=== PATIENT | male | born 1955 | race Caucasian/White ===

== ENCOUNTER 2016-07-05 22:17 | Emergency (ER) | payer OTHER ==
--- NOTE | ~2016-07-05 | EKG ---
PATIENT: IGOR MÁRQUEZ UNIT #: [id number] Ventricular Rate: 78 BPM Atrial Rate: 78 BPM P-R Interval: 158 ms QRS Duration: 82 ms Q-T Interval: 370 ms QTC Calculation(Bezet): 421 ms P Han[place]: 59 degrees Calculated R [place]: 47 degrees Calculated T Han[place]: 63 degrees Diagnosis Line: Normal sinus rhythm Diagnosis Line: Normal ECG Diagnosis Line: When compared with ECG of 08-FEB-2015 14:58, Diagnosis Line: No significant change was found Diagnosis Line: Confirmed by GARY SWAIN MD ([id number]) on 07/06/2016 Diagnosis Line: 6:34:04 PM INTERPRETING MD: WILIAM RICHARDSON
--- NOTE | ~2016-07-05 | CT4 ---
[facility] A Service of [facility] RADIOLOGY TEXT RESULTS PATIENT: IGOR MÁRQUEZ LOCATION: [facility] : 59 UNIT #: [id number] AGE: [address]: Mingo Downey MD SEX: M ORDER DR: [id number] [facility] [address] [place], [place] [address] [id number] MR#: [id number] Acc #: [id number] NAME: IGOR MÁRQUEZ. : 1955 SEX: M STUDY DATE/TIME: 07/06/2016 3:31 UNIT: [facility] ROOM: STUDY DESCRIPTION: CT Abd and Pelv Wo Cont Attending Physician: Mingo Downey M.D. Ordering Physician: Zach Lakhani M.D. Primary Care Physician: Wilton Guzman M.D. MEDICAL IMAGING REPORT This report is preliminary unless electronic signature is present EXAM CT abdomen and pelvis, noncontrast, 07/06/2016. HISTORY 61-year-old male in the ED complaining of 2-day history of abdomen pain, weakness, shortness of air, lower extremity swelling. History of hepatitis and jaundice. TECHNIQUE CT examination of the abdomen and pelvis was performed without IV contrast. GI contrast material was administered. This CT exam was performed with one or more of the following radiation dose reduction techniques: automatic control, adjustment of mA and/or kV according to patient size, and iterative reconstruction. COMPARISON CT abdomen/pelvis, 02/08/2015. FINDINGS ABDOMEN FINDINGS: Lung base images show extensive pulmonary emphysema and multifocal pulmonary scarring. Mild bronchovascular infiltrate is present in the right lower lobe. No airspace consolidation or pleural effusion. Gastrostomy tube has been removed since the previous study. Cholecystectomy. Liver, pancreas and spleen are within normal limits. Extensive postop changes in the anterior abdominal wall with a shallow, fairly broad-based midline upper abdominal wall hernia containing unobstructed bowel and abdominal fat. Several tiny nonobstructing left renal calculi. Kidneys, ureters and bladder are otherwise negative. No evidence of urinary obstruction. PELVIS FINDINGS: Mild prostate enlargement. Bladder and rectum are [facility] A Service of [facility] RADIOLOGY TEXT RESULTS PATIENT: IGOR MÁRQUEZ LOCATION: [facility] : 59 UNIT #: [id number] AGE: [address]: Mingo Downey MD SEX: M ORDER DR: unremarkable. No inguinal hernia. IMPRESSION 1. No definite acute abnormalities seen within the abdomen or pelvis. 2. Severe pulmonary emphysema with bronchovascular infiltrate in the right lower lobe. No airspace consolidation or pleural effusion. 3. Cholecystectomy. 4. Extensive postop changes in the anterior abdominal wall with a shallow, broad-based ventral hernia in the upper midline abdomen containing unobstructed bowel and abdominal fat. 5. Several tiny nonobstructing left renal calculi. 6. Prostate enlargement. Dictated by... Oli Moscoso M.D. THIS IS AN ELECTRONICALLY VERIFIED REPORT Oli Moscoso M.D. at 07/06/2016 5:58 AM RENETTA/vel TD: 07/06/2016 04:13 JOB #: [id number] MEDICAL IMAGING REPORT Page 1 of 1 COPY
[~2016-07-05 22:17] MED LIST: ADRENOID CAPSU1 EACH PO; ALBUTEROL17 GM INH; ALPRAZOLAM PO; AMBIEN PO; AMBIEN10 MG PO; APIDRA (NF100 UNITS/ SUBQ; B/P PILL; BLOOD PRESSURE; CARAFATE PO; COLACE PO; COMBIVENT U/D3 M1 INH; CUBICIN INJ; CUBICIN IV; CYANOCOBALAM1000 MCG PO; DILAUDID PO; DILAUDID8 MG PO; DOC-Q-LACE100 MG PO; DOXYCYCLINE150 MG PO; DURAGESIC100 MCG EXT; FERROUS GLUCON324 MG PO; FOLIC ACID1 MG PO; GUAIFENESIN600 M1 PO; HUMALOG100 U/ML; HUMALOG100 U/ML SUBQ; JEVITY1000 M1 FT; KCL PO; LANTUS100 U/M1 SUBQ; LEVAQUIN P500 MG/100 IV; LEVAQUIN750 M1 PO; LISINOPRIL10 MG PO; LOMOTIL WHITE2.5 MG PO; LORTAB 5/500 TA1 TA1 PO; MILK OF MAGNESIA PO; MIRALAX17 GM PO; MONDOXYNE NL100 MG PO; NEURONTIN PO; NEURONTIN800 MG DOB; NEURONTIN800 MG PO; NO MEDICATIONS; NORVASC10 MG PO; OMEPRAZOLE40 MG PO; OXYCONTIN PO; OXYCONTIN20 MG PO; PERCOCET 10/3251 TAB PO; PERCOCET 5/321 UDTAB PO; PERCOCET 7.5-31 EACH PO; PERCOCET 7.5/321 TAB PO; PERCOCET PO; PERCOCET10 PO; PHENERGAN PO; PHENERGAN25 M1 PO; PROAIR HFA8.5 GM PO; PROCTOFOAM-HC 110 GM MC; PROMETHAZINE V118 M1; PROMETHAZINE V118 M1 PO; PROTONIX PO; REGLAN PO; RIFADIN150 MG PO; SENNA PO; SPIRIVA18 MCG INH; SYMBICORT PO; TOPROL XL 50 MG50 MG PO; VIT B12 PO; VITAMIN C250 MG PO; VORICONAZOLE200 MG PO; XANAX XR1 MG PO; XANAX XR2 MG PO; XANAX0.5 M1 PO; XANAX1 MG PO; XANAX2 MG PO; ZOCOR PO; ZOCOR80 MG PO; ZOFRAN PO; ZYVOX600 MG DOB
[2016-07-06 02:55] LABS: BASOPHIL% 0.4 % (0-2.5); DIFF IND NO; EOSINOPHIL# 0.1 X10e3 (0-0.7); EOSINOPHIL% 1.2 % (0.0-7.0); HEMATOCRIT 35.9 % (38.0-50.0); LYMPHOCYTE# 0.9 X10e3 (1.0-3.5); LYMPHOCYTE% 14.8 % (17.0-45.0); MEAN CELL VOLUME 98.3 FL (83-96); MEAN CORPUSCULAR HEMOGLOBIN 32.8 PG (28-34); MEAN CORPUSCULAR HGB CONC 33.4 g/dL (30-36); MEAN PLATELET VOLUME 7.4 FL (6.5-11.5); MONOCYTE# 0.3 X10e3 (0-1.0); MONOCYTE% 5.9 % (3.0-12.0); NEUTROPHIL# 4.5 X10e3 (1.5-7.1); NEUTROPHIL% 77.7 % (40-75); PLATELET COUNT 153 X10e3 (140-420); RED BLOOD COUNT 3.65 X10e (3.90-5.60); WHITE BLOOD COUNT 5.8 X10e3 (4.0-10.5)
[2016-07-06 03:21] LABS: ALBUMIN SERUM 2.4 g/dL (3.5-5.0); ALKALINE PHOSPHATASE 266 U/L (32-92); ALT (SGPT) 339 U/L (10-40); AST (SGOT) 298 U/L (10-42); BILIRUBIN, DIRECT 1.3 mg/dL (0.0-0.2); BILIRUBIN,INDIRECT 1.3 mg/dL (0.0-0.9); BILIRUBIN,TOTAL 2.6 mg/dL (0.2-2.0); BLOOD UREA NITROGEN 16 mg/dL (9-23); CARBON DIOXIDE 26 mmol/L (22-31); CHLORIDE 102 mmol/L (100-111); CREATININE SERUM 0.8 mg/dL (0.6-1.4); GLOM FILT RATE Estimated 97.8 mL/min (>60); GLUCOSE FASTING 90 mg/dL (70-110); LIPASE 38 U/L (22-51); POTASSIUM 4.1 mmol/L (3.5-5.1); SODIUM 134 mmol/L (135-145)
[2016-07-06 03:25] LABS: ALCOHOL BLOOD <5 mg/dL (0)
== END 2016-07-06 05:32 | disposition home or self-care (01) ==
LOC: CED 22:17
PROVIDERS: Emergency Medicine
DX: J44.1 Chronic obstructive pulmonary disease with (acute) exacerbation (principal); R10.9 Unspecified abdominal pain; R19.7 Diarrhea, unspecified; E11.9 Type 2 diabetes mellitus without complications; F17.200 Nicotine dependence, unspecified, uncomplicated; Z98.890 Other specified postprocedural states
CPT/HCPCS: 36415; 74176; 80048; 80076; 83690; 85025; 93005; 96374; 96375; 99284; G0480; J2270; J2765

== ENCOUNTER → 2016-07-16 | Outpatient (CLI) | payer OTHER ==
[~2016-07-16] MED LIST changes: +HUMALOG100 UNIT/1 SUBQ; +HYDROMORPHONE ER8 MG PO
--- NOTE | ~2016-07-16 | EKG ---
PATIENT: IGOR MÁRQUEZ UNIT #: [id number] Ventricular Rate: 72 BPM Atrial Rate: 72 BPM P-R Interval: 158 ms QRS Duration: 84 ms Q-T Interval: 376 ms QTC Calculation(Bezet): 411 ms P Gordon: 67 degrees Calculated R Gordon: 49 degrees Calculated T Gordon: 57 degrees Diagnosis Line: Normal sinus rhythm Diagnosis Line: Normal ECG Diagnosis Line: When compared with ECG of 06-JUL-2016 01:43, Diagnosis Line: No significant change was found Diagnosis Line: Confirmed by BLAISE BROWN MD ([id number]) on Diagnosis Line: 07/17/2016 3:39:19 PM INTERPRETING MD: SURI
[2016-07-16 08:29] LABS: HEMATOCRIT 38.6 % (38.0-50.0); HEMOGLOBIN 12.5 gm/dL (13.0-16.0); MEAN CELL VOLUME 98.2 FL (83-96); MEAN CORPUSCULAR HEMOGLOBIN 31.8 PG (28-34); MEAN CORPUSCULAR HGB CONC 32.4 g/dL (30-36); MEAN PLATELET VOLUME 7.5 FL (6.5-11.5); RED BLOOD COUNT 3.93 X10e (3.90-5.60); RED CELL DISTRIBUTION WIDTH 14.5 % (11.0-15.5); WHITE BLOOD COUNT 5.1 X10e3 (4.0-10.5)
[2016-07-16 09:33] LABS: ALBUMIN SERUM 2.3 g/dL (3.5-5.0); BILIRUBIN,TOTAL 1.3 mg/dL (0.2-2.0); CALCIUM SERUM 7.8 mg/dL (8.4-10.2); CREATININE SERUM 0.8 mg/dL (0.6-1.4); GLOM FILT RATE Estimated 97.8 mL/min (>60); POTASSIUM 3.7 mmol/L (3.5-5.1); PROTEIN TOTAL SERUM 5.6 g/dL (6.0-8.3)
== END | disposition home or self-care (01) ==
LOC: CAMB 07:49
PROVIDERS: Specialist
DX: Z01.818 Encounter for other preprocedural examination (principal); K43.9 Ventral hernia without obstruction or gangrene
CPT/HCPCS: 36415; 80053; 85027; 93005

== ENCOUNTER 2016-07-25 07:10 | Inpatient (IN) | payer OTHER ==
--- NOTE | ~2016-07-25 | CR72 ---
[facility] A Service of [facility] RADIOLOGY TEXT RESULTS PATIENT: IGOR MÁRQUEZ LOCATION: [facility] 469-01 : 59 UNIT #: [id number] AGE: [address]: Zach Constantino MD SEX: M ORDER DR: [id number] [facility] [address] [place], [place] [address] [id number] I MR#: [id number] Acc #: [id number] NAME: IGOR MÁRQUEZ. : 1955 SEX: M STUDY DATE/TIME: 07/31/2016 10:31 UNIT: [facility] ROOM: [facility] STUDY DESCRIPTION: CR Chest Single View Portable Attending Physician: Zach Constantino M.D. Ordering Physician: Zach Constantino M.D. Primary Care Physician: Wilton Guzman M.D. MEDICAL IMAGING REPORT This report is preliminary unless electronic signature is present EXAM Portable chest. HISTORY Shortness of breath and leg swelling for the past 2 days. TECHNIQUE Single view of the chest was obtained and compared with 04/07/2015. FINDINGS The heart and mediastinum are stable. Increased markings are seen at both lung apices, right greater than left, showing no change. No new infiltrates are seen. Pulmonary vascular markings are mildly prominent and more so than on the previous exam. No pleural fluid is seen. IMPRESSION Mild increase in pulmonary vascularity since the previous examination. Borderline vascular congestion. This is a new finding. Bilateral apical fibrosis right worse than left is again seen and unchanged. STAT * RESULT Dictated by... Zach Ernst M.D. THIS IS AN ELECTRONICALLY VERIFIED REPORT Zach Ernst M.D. at 07/31/2016 6:20 PM MIKAL/nena TD: 07/31/2016 10:59 JOB #: [id number] [facility] A Service of [facility] RADIOLOGY TEXT RESULTS PATIENT: IGOR MÁRQUEZ LOCATION: [facility] 469-01 : [birth year] UNIT #: [id number] AGE: [address]: Zach Constantino MD SEX: M ORDER DR: MEDICAL IMAGING REPORT Page 1 of 1 COPY
--- NOTE | ~2016-07-25 | FU ---
[facility] Nutrition Therapy DATE: 08/06/16 Patient: IGOR MÁRQUEZ Physician: STEROB Address: [address] [place] [address] Room/Bed: [address], Zip: [place] [address] Admit Date: 07/25/16 Date of : [birth year] Height: 5 10 Weight: 194 88 NUTRITION MONITORING/FOLLOW-UP: Reason: CONSULT RE: ENTERAL NUTRITION SUPPORT DX: VENTRAL HERNIA Anthropometrics: 5'10", WT: 194#, BMI: 27.8 Labs: CA+:7.2, ALB: 1.0, AST: 93, ALT: 81, PHOS: 2.4 Meds: MEDS REVIEWED (SEE RD FOLLOW-UP 08/05/16) I&O's: 3239/2146, 1 BM NOTED Skin: WOUND VAC ABD Estimated Nutrition Needs: [id number] KCAL 94-112 G PRO Assessment: CHART REVIEWED AND EVENTS NOTED. PT SEEN FOR CONSULT RE: ENTERAL NUTRITION SUPPORT. PT CONTINUES TO BE INTUBATED AND SEDATED RECEIVING TPN 25% DEXTRPOSE, 5% AA @ 85 ML/HR + 20% 250 ML LIPIDS DAILY. PER RN AND CHART, PLANS IN PLACE FOR POSSIBLE WEAN TODAY OFF VENT AND BEGIN ENTERAL NUTRITION SUPPORT VIA NGT AT 20 ML/HR. RD TO FOLLOW. SEE RECOMMENDATIONS BELOW. -TPN + LIPIDS PROVIDE 102 G PRO, 1734 NON-PROTEIN KCAL, 2642 TOTAL KCAL Dx: SEE DX STATEMENT FOR 08/05/16 FOLLOW-UP Intervention: 1. TPN 2. RD CONSULT Monitoring, Evaluation and Goals: SEE GOALS AT ON 08/05/16 FOLLOW-UP NEW GOAL: 1. ENTERAL NUTRITION; PROVIDE >80% ESTIMATED NUTRIENT NEEDS AT GOAL X 24 HOURS Recommendations: 1. CONTINUE TO MONITOR LYTES, TGs AND GLU DAILY 2. CONTINUE CURRENT TPN 25% DEXTROSE, 5% AA @ 85 ML/HR + LIPIDS DAILY WEAN TPN PER PT TOLERANCE 3. RECOMMEND TO BEGIN ENTERAL NUTRITION SUPPORT OF VITAL 1.5 @ 20 ML/HR, ADVANCE 10 ML q 12 HOURS TO GOAL RATE OF 60 ML/HR [facility] Nutrition Therapy DATE: 08/06/16 Patient: IGOR MÁRQUEZ Physician: STEROB Address: [address] [place] [address] Room/Bed: [address], Zip: [place] [address] Admit Date: 07/25/16 Date of : [birth year] Height: 5 10 Weight: 194 88 -PROVIDES 2160 KCAL, 97 G PRO, 1094 ML FREE H20 ADD FREE H20 FLUSHES OF 180 ML q 4 HOURS TO MEET PT'S CURRENT ESTIMATED FLUID NEEDS OR MANAGE PER MD 4. ONCE PT EXTUBATED & ABLE TO TOLERATE PO INTAKE, CONSULT ENERGY CONSERVATION TECHNICIAN + HH/GI SOFT DIET RD WILL F/U PER PROTOCOL PT IS MOD/SEVERELY COMPROMISED Respectfully, JARAD ASHBY MS, RD, LD [employer] [facility] [employer] cc: client file
--- NOTE | ~2016-07-25 | CO ---
Unit #: [id number] #: [id number] Patient: IGOR WADE [id number] [facility]. [place], [place] [address] [id number] I MR#: [id number] NAME: IGOR WADE ROOM: [facility] Age: 61 Sex: M Admission Date: 07/25/2016 : 1955 Attending Physician: Zach Constantino M.D. Primary Care Physician: Wilton Guzman M.D. Consultation Date: 08/02/2016 CONSULTATION REPORT REASON FOR CONSULTATION Mechanical ventilatory support following surgery. HISTORY OF PRESENT ILLNESS A 61-year-old gentleman, who has multiple medical problems and COPD is listed as one of them. He apparently was admitted to the hospital with recurrent incisional ventral hernia with subsequent repair. He apparently was doing fairly well per discussion with Dr. Constantino with fairly normal GAVIOTA drainage. He had increasing abdominal distention, worsening foul GAVIOTA drainage. Ultimately, it was discovered he had a loop of bowel in his hernia and was taken to the OR for resection. He now is on the ventilator in the intensive care unit. He is poorly responsive secondary to anesthesia and comfortable on the ventilator, but obviously nonverbal. PAST MEDICAL HISTORY Remarkable for recurrent ventral hernia, spinal osteomyelitis on MRI, history of gastroparesis, diabetes, COPD, pancreatitis, gastroesophageal reflux. MEDICATIONS Currently, Tygacil, Protonix, Lovenox, lactulose as ordered, and I have asked him to clarify that with surgery. ALLERGIES Penicillin, unknown reaction. SOCIAL HISTORY Previous smoker. FAMILY HISTORY Unobtainable. REVIEW OF SYSTEMS Unobtainable. PHYSICAL EXAMINATION GENERAL: Reveals a gentleman, who is in no acute distress. VITAL SIGNS: He is afebrile. Pulse is 124, respiratory rate is 25, blood pressure is 141/99, 5 feet 10 inches, 195 pounds. HEENT: Pupils are equal, round, and reactive to light. Sclerae anicteric. Head, atraumatic. NECK: Supple. No supraclavicular or cervical adenopathy appreciated. CHEST: Equal breath sounds. No wheeze or stridor. Unit #: [id number] #: [id number] Patient: IGOR WADE CARDIAC: Reveals regular rate and rhythm. ABDOMEN: Postop, fairly unremarkable. EXTREMITIES: Reveal no clubbing, cyanosis, or edema. No calf tenderness. NEUROLOGIC: He is still sedated. DIAGNOSTIC STUDIES IMAGING STUDIES: Reveals a chest x-ray; ET tube in adequate position. It looks like he has some cervical hardware. I do not see any definite pulmonary infiltrates. There are few patchy areas that may be overlying soft tissue changes, but certainly no overt pneumonia. LABORATORY RESULTS: BUN 34, creatinine is 1.4. A variety of electrolyte abnormalities and Renal has been consulted. White blood cell count is 9.0, hemoglobin 11.3, platelet count 213. Blood cultures are pending. CARDIOVASCULAR STUDIES: EKG has not been performed recently. IMPRESSION 1. Respiratory failure, postoperatively. 2. Postop resection of hernia and ischemic bowel. 3. Acidosis, multifactorial. 4. Diabetes and chronic obstructive pulmonary disease without active bronchospasm, etc. PLAN Mechanical ventilatory support. There is discussion of possible bicarb drip later depending on response to resuscitation as per Renal. I will check a lactate. Rule out myocardial infarction, although acute coronary syndrome is unlikely. Thank you very much for allowing me to participate in the care of Mr. Wade. Dictated by... Blayne Sierra M.D. MOOKIE/gustavo TD: 08/03/2016 22:07 JOB #: [id number] CONSULTATION REPORT Page 1 of 1 X Blayne Sierra MD CONSULTATION REPORT
--- NOTE | ~2016-07-25 | DS ---
Unit #: [id number] #: [id number] Patient: IGOR WADE [id number] [place], [place] [address] [id number] Ish MR#: [id number] NAME: IGOR WADE. ROOM: [facility] Age: 61 Sex: M Admission Date: 07/25/2016 : 1955 Discharge Date: 08/10/2016 Attending Physician: Zach Constantino M.D. Primary Care Physician: Wilton Guzman M.D. DISCHARGE SUMMARY SUMMARY HISTORY AND HOSPITAL COURSE Mr. Wade is a 61-year-old gentleman who had a long history of chronic medical problems and had multiple previous abdominal surgeries and had been followed in my office because of complaints of an incisional ventral hernia. This hernia had been repaired on multiple previous occasions by several surgeons and I had operated on him to remove some infected abdominal wall mesh and treat a chronic non-healing surgical wound. At that time, I had done a hernia repair which subsequently failed and he has developed a recurrence. Because of the high risk of failure of further repair, we had encouraged Mr. Wade from having a repair but the patient continued to complain of pain and bulging and made several office visits asking to proceed with hernia repair because of his pain. After we had had several discussions and Mr. Wade and I agreed to proceed, he was brought in the morning of surgery where he underwent exploratory laparotomy, lysis of adhesions, and repair of his recurrent incisional hernia using a Strattice mesh to bridge the fascial defect that he had. He was admitted to the hospital postoperatively and on the 1st postoperative day he was afebrile with stable vital signs. He had excellent urine output and the Jose J-Hinojosa drain placed in the abdominal wall to prevent seroma formation had serous output as expected. His physical exam and laboratory parameters were unremarkable. The patient was instructed to wear an abdominal binder for support of his abdominal wall in the postoperative period. By the 2nd postoperative day, he again remained hemodynamically stable. His physical exam was unremarkable and his Jose J-Hinojosa output remained benign. On the 3rd postoperative day, he again remained afebrile with stable vital signs. His physical exam and labs were unchanged. At this point, we are awaiting return of bowel function so that we can advance his diet. On the 4th postoperative day, he again remained afebrile with stable vital signs. He complained of some nausea but had no vomiting and was tolerating a liquid diet. Jose J-Hinojosa output remained serosanguineous. On the 5th postoperative day he again remained afebrile with stable vital signs. He continued to have serous Jose J-Hinojosa output. His abdominal exam was unremarkable. His CBC was normal. His chemistries showed some mild liver dysfunction but he did have underlying pancreatic and liver disease and his albumin showed some protein calorie malnutrition with an Unit #: [id number] #: [id number] Patient: IGOR WADE albumin of 1.7. We checked a hepatitis profile and were able to advance his diet and ask for physical therapy to evaluate the patient and a rehab consult was ordered. The patient called later that day stating that patient seemed somewhat lethargic and, based on his laboratory parameters, I ordered a pneumonia level which was mildly elevated. On the 6th postoperative day, he was afebrile with stable vital signs. He continued to have the serous Jose J-Hinojosa output. He was lethargic but he would awaken to his name and answered questions appropriately. Due to his mildly elevated ammonia level, he was given some lactulose to rule out any cirrhosis-related hepatic encephalopathy contributing to his lethargy. After the call from the nurses, I saw him later that day and he, again, had stable vital signs with a blood pressure of 126/90, heart rate of 91, respirations of 22 and unlabored. He had a temperature of 97.9. His O2 sats were 95% and, again, he was lethargic but he readily awakened to his name and answered questions appropriately. He was complaining of some nausea but his abdomen was soft and his Jose J-Hinojosa drain remained serosanguineous. Laboratories at that time showed continued elevation of his liver chemistries but his white count was 8000, his hemoglobin was 12.1 and his chemistries were otherwise unremarkable. 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 On the 7th postoperative day, he was still afebrile. Vital signs were unremarkable. His Jose J-Hinojosa drainage was serosanguineous and decreased. His abdomen was soft and nondistended with no rebound tenderness. His wound was clean, dry and intact. Chemistries again were generally unremarkable. His liver chemistry started to show a downward trend towards normal and his hemoglobin and white count remained normal. His tox screen showed benzodiazepines and opiates as expected. He was described as more alert but he was not active, refusing to get out of bed and ambulate with the nursing staff. The nurses had reported an episode of incontinence so we placed a Peterson catheter to follow his urine output. His abdominal wound and hernia repair remained intact. On the 8th postoperative day, he was afebrile with stable vital signs. There was a change in his Jose J-Hinojosa output. It appeared to have some more purulent appearing drainage. His urine output was adequate. His liver chemistries continued to improve. Because of the change in the nature of the Jose J-Hinojosa output overnight, I opened his wound to rule out a wound infection. Upon opening his wound, I noted that the patient had disrupted his hernia repair and had a loop of small bowel that had herniated between the mesh and the abdominal wall fascia and showed signs of ischemia. For this reason, he was taken back to the operating room urgently for repair of the hernia disruption. Because of the purulent drainage, there was risk for mesh infection so I removed the mesh at the time of exploration. The piece of bowel that had become herniated required resection and I did a primary closure of his abdominal wall. Anesthesia noted that during his intubation there was evidence that he may have had some aspiration and so he was left intubated and put in the Intensive Care Unit postoperatively. Dr. Sierra from pulmonary medicine and Dr. Barksdale from nephrology were asked to see the patient to follow his renal and pulmonary status while he was in the Intensive Care Unit. The following day, the patient was described as alert. His vital signs were unremarkable. His hemoglobin was stable. His white count was 11.8. He was described as improved and dressing changes were initiated. During Unit #: [id number] #: [id number] Patient: IGOR WADE his intensive care course, his renal function and nutrition was followed by the nephrology service and his ventilator was managed by the locomotive crane engineer. The following day, the surgical team making rounds on the patient described him as afebrile with stable vital signs, improved urine output. His abdominal wound was intact and dry. Hemoglobin was stable at 10.3, white count was normal at 7.7 and, again, TPN was recommended but to be followed by the nephrology service because of his kidney status. TPN was ordered and followed by the nephrology service. That day, his chemistries were normal except for slight elevation of his BUN and creatinine. His albumin remained depressed. His calcium was normal, his INR is 1.4. During this time, antibiotics were ordered and followed by the nephrology service for presumed aspiration pneumonia. The following day, the surgical services making rounds noted the patient was afebrile with stable vital signs. He had good urine output. His TPN was started. He had minimal NG-tube output. His wound was intact, his abdomen was soft. His labs were stable. On that day, it was noted that his renal function was better and his TPN was continued. The following day, the surgical team noted that he was alert, he was afebrile. His vital signs were stable. He had good urine output and he had two bowel movements. Tube feeds were initiated and a wound vac was placed to his wound to facilitate healing. The nephrology service noted that his renal function was improving, they were continuing to manage his nutrition, and the pulmonary service noted that they were going to begin weaning the patient from the ventilator. The following day, the surgical services team noted the patient was tolerating tube feeds. He was hemodynamically stable. His abdomen was benign to exam. His wound vac was removing a fair amount of the ascitic fluid that he had developed from his liver dysfunction. During this period of time, he had some urinary colonization with some yeast and had been started on Diflucan. He continued to tolerate his TPN and his tube feeds were adjusted as he tolerated. At this time, his BUN and creatinine were down to normal levels. His white blood cell count and hemoglobin were stable. He did have a dip in his platelets felt to be due to his DVT prophylaxis and that was adjusted by the nephrology service. The pulmonary service noted that he had failed weaning so they continued to rest him on the ventilator. The following day, he was afebrile with stable vital signs. He had good urine output. His back had decreasing output, his abdomen was soft and nondistended. His labs were normal and current management was continued as he was still being treated on the ventilator. It was noted by the pulmonary service on this date that he had failed a CPAP trial. A blood culture came back with yeast bacteremia and infectious disease service was asked to see the patient and they discontinued his PICC line and his Diflucan and changed his antifungal agent, ordered blood cultures and an echocardiogram. Nephrology noted that his renal failure was much improved and they continued to manage his TPN and electrolytes. After removal of the PICC line, a central line was placed. The following day, the patient spiked a temperature to 102.2. His blood pressure was 103/68. He became mildly tachypneic and he failed weaning and pulmonary medicine made note that he may need a tracheostomy. Pulmonary medicine spoke with the family and they did not want to have a Unit #: [id number] #: [id number] Patient: IGOR WADE trach. His white count had noted to be increased to 14.7, his hemoglobin was stable at 9.5. Pulmonary medicine felt that the patient was not responding to treatment for his respiratory failure and had a discussion with the family who decided that they did not want to place a trach and decided to extubate the patient. At the family's request, he was extubated and care and comfort measures were initiated and at 12:20 a.m. on August 10, 2016, the patient was pronounced . Dictated by... Zach Constantino M.D. MILIND/london TD: 09/03/2016 06:52 JOB #: [id number] DISCHARGE SUMMARY Page 1 of 1 X Zach Constantino MD X DISCHARGE SUMMARY
--- NOTE | ~2016-07-25 | CR72 ---
[facility] A Service of [facility] RADIOLOGY TEXT RESULTS PATIENT: IGOR MÁRQUEZ LOCATION: [place] [address] : [birth year] UNIT #: [id number] AGE: [address]: Zach Constantino MD SEX: M ORDER DR: [id number] [facility] [address] [facility]. [place], [place] [address] [id number] I MR#: [id number] Acc #: [id number] NAME: IGOR MÁRQUEZ. : 1955 SEX: M STUDY DATE/TIME: 08/03/2016 4:46 UNIT: [facility] ROOM: [facility] STUDY DESCRIPTION: CR Chest Single View Portable Attending Physician: Zach Constantino M.D. Ordering Physician: Blayne Sierra M.D. Primary Care Physician: Wilton Guzman M.D. MEDICAL IMAGING REPORT This report is preliminary unless electronic signature is present EXAM Single view chest. INDICATION Shortness of air for 3 days. FINDINGS Single, portable, AP view of the chest compared to 08/02/2016. Right PICC remains in place. There is an enteric tube in the stomach. Heart and mediastinal contours are stable. There are patchy opacities in both lungs which are similar to the prior study. No pneumothorax. IMPRESSION No interval change. Dictated by... Andrews Moody M.D. THIS IS AN ELECTRONICALLY VERIFIED REPORT Andrews Moody M.D. at 08/03/2016 11:14 PM DAIC/nena TD: 08/03/2016 08:53 JOB #: [id number] MEDICAL IMAGING REPORT Page 1 of 1 COPY
--- NOTE | ~2016-07-25 | OR ---
Unit #: [id number] #: [id number] Patient: IGOR WADE [id number] [facility] [address] [facility]. [place], [place] [address] [id number] Ish MR#: [id number] NAME: IGOR WADE. ROOM: 469 Date of Procedure: 07/25/2016 Admission Date: 07/25/2016 Surgeon: Zach Constantino M.D. : 1955 Attending Physician: Zach Constantino M.D. Primary Care Physician: Wilton Guzman M.D. OPERATIVE REPORT PREOPERATIVE DIAGNOSES Recurrent incisional ventral hernia with 10 cm fascial defect. POSTOPERATIVE DIAGNOSES Recurrent incisional ventral hernia with 10 cm fascial defect. PROCEDURES PERFORMED Exploratory laparotomy, lysis of adhesions, repair of incisional ventral hernia with a 10 x 16 cm Strattice mesh, placement of Jose J-Hinojosa drain. DRILLING RIG OPERATOR Dinorah. ANESTHESIA General endotracheal anesthesia. ESTIMATED BLOOD LOSS 100 mL. INDICATIONS FOR PROCEDURE Mr. Wade is a 61-year-old gentleman, who has had multiple previous abdominal operations in the past. He most recently has had several hernia repairs that involved mesh and the mesh became infected and required removal. Despite a primary closure with a component separation, his hernia has recurred and he is now having increasing pain and although, he has no obstruction. He does have some GI dysfunction. DESCRIPTION OF PROCEDURE The patient was admitted to [facility], positively identified, and transported to the operating room, and after induction of general endotracheal anesthesia, SCDs and Peterson catheter were placed. An NG tube was placed and he received vancomycin IV. After being prepped and draped in usual sterile fashion, a transverse incision was made below the old scar. I dissected down and the hernia sac from the skin circumferentially. I opened the hernia sac and entered into the hernia sac and there were adhesions from small and large bowel that were mobilized, taken down and reduced into the peritoneal cavity. I then completed the removal of the hernia sac from the soft tissue and excised it off the underlying fascia. I identified the fascia circumferentially. The falciform ligament was taken down and further adhesions were taken down, where he had a previous gastrostomy tube, the stomach was mobilized from the abdominal wall. The anterior gastric wall was closed with a TA Unit #: [id number] #: [id number] Patient: IGOR WADE T 60 stapler and the staple line was oversewn with 2-0 silk inverting suture. The remaining stoma of the gastrostomy tube was excised from the abdominal wall. Once the hernia sac had been completely cleared from the soft tissue and the fascia identified circumferentially, all adhesions were taken down. We irrigated and there was good hemostasis. I measured the defect and then took a 10 x 16 cm Strattice mesh. It was secured circumferentially with #1 Vicryl interrupted U sutures. Once the mesh was appropriately positioned, the sutures were tied down, securing the mesh in an underlay position with the fascia. I then irrigated. There was excellent hemostasis. Through a separate stab incision, a Jose J-Hinojosa drain was placed dependently into the soft tissue defect. The soft tissue was closed with 2-0 Vicryl interrupted suture and the fascial defect at the previous gastrostomy tube stoma site was closed with #1 Vicryl interrupted sutures. The skin was closed with sterile skin molly. Dry sterile dressings were placed. A Jose J-Hinojosa drain was placed to bulb suction. Sponges and needle counts were correct x3. The patient tolerated the procedure well and transported to recovery in stable condition. There was no family available to discuss the findings with at the end of the case. Dictated by... Xiomara Ferrer/gustavo TD: 07/26/2016 00:19 JOB #: [id number] OPERATIVE REPORT Page 1 of 1 X Zach Constantino MD PROCEDURE OPERATIVE NOTE
--- NOTE | ~2016-07-25 | CR72 ---
[facility] A Service of [facility] RADIOLOGY TEXT RESULTS PATIENT: IGOR MÁRQUEZ LOCATION: [address] : [birth year] UNIT #: [id number] AGE: [address]: Zach Constantino MD SEX: M ORDER DR: [id number] [facility] [address] [facility]. [place], [place] [address] [id number] I MR#: [id number] Acc #: [id number] NAME: IGOR MÁRQUEZ. : 1955 SEX: M STUDY DATE/TIME: 08/05/2016 6:24 UNIT: [facility] ROOM: [facility] STUDY DESCRIPTION: CR Chest Single View Portable Attending Physician: Zach Constantino M.D. Ordering Physician: Blayne Sierra M.D. Primary Care Physician: Wilton Guzman M.D. MEDICAL IMAGING REPORT This report is preliminary unless electronic signature is present EXAM Portable chest 08/05/2016 COMPARISON 08/04/2016. HISTORY Respiratory failure, shortness of breath since 07/25/2016. Status post exploratory lap and hernia repair on 07/25/2016. FINDINGS An AP portable view is obtained. The patient remains intubated. ET tube in good position. Nasoenteric tube is in the stomach. Right-sided PICC line terminates in the SVC. There are postop changes of upper thoracic fusion. Infiltrates persist in the left upper lobe. CONCLUSION 1. Left upper lobe infiltrate. 2. Tubes and lines in satisfactory position. Dictated by... Albert Childress M.D. THIS IS AN ELECTRONICALLY VERIFIED REPORT Albert Childress M.D. at 08/06/2016 5:06 PM BLANCA/maximiliano TD: 08/05/2016 07:24 JOB #: [id number] MEDICAL IMAGING REPORT [facility] A Service of [facility] RADIOLOGY TEXT RESULTS PATIENT: IGOR MÁRQUEZ LOCATION: [address] : [birth year] UNIT #: [id number] AGE: [address]: Zach Constantino MD SEX: M ORDER DR: Page 1 of 1 COPY
--- NOTE | ~2016-07-25 | CR72 ---
[facility] A Service of [facility] & [facility] RADIOLOGY TEXT RESULTS PATIENT: IGOR MÁRQUEZ LOCATION: [place] [id number] : [birth year] UNIT #: [id number] AGE: [address]: Zach Constantino MD SEX: M ORDER DR: [id number] [facility] [address] [facility] [place] [facility]. [place], [place] [address] [id number] I MR#: [id number] Acc #: [id number] NAME: IGOR MÁRQUEZ. : 1955 SEX: M STUDY DATE/TIME: 08/04/2016 5:09 UNIT: [facility] ROOM: [facility] STUDY DESCRIPTION: CR Chest Single View Portable Attending Physician: Zach Constantino M.D. Ordering Physician: Blayne Sierra M.D. Primary Care Physician: Wilton Guzman M.D. MEDICAL IMAGING REPORT This report is preliminary unless electronic signature is present EXAM Portable chest, 08/04/2016. HISTORY Respiratory failure for 10 days. Shortness of breath. Essential hypertension. COMPARISON Chest, 08/03/2016. FINDINGS Frontal chest demonstrates tubes and lines in stable position. No visible pneumothorax. No improvement in patchy bilateral pulmonary infiltrates. Heart size and mediastinum are stable. IMPRESSION 1. Tubes and lines stable. No visible pneumothorax. 2. No change in patchy bilateral pulmonary infiltrates. Dictated by... Tommy Coreas M.D. THIS IS AN ELECTRONICALLY VERIFIED REPORT Tommy Coreas M.D. at 08/05/2016 8:52 AM JIM/nena TD: 08/04/2016 07:21 JOB #: [id number] MEDICAL IMAGING REPORT Page 1 of 1 COPY
--- NOTE | ~2016-07-25 | CR72 ---
[facility] A Service of [facility] & [facility] RADIOLOGY TEXT RESULTS PATIENT: IGOR MÁRQUEZ LOCATION: [address] : [birth year] UNIT #: [id number] AGE: [address]: Zach Constantino MD SEX: M ORDER DR: [id number] [facility] [address] [facility]. [place], [place] [address] [id number] I MR#: [id number] Acc #: [id number] NAME: GIOR MÁRQUEZ : 1955 SEX: M STUDY DATE/TIME: 08/02/2016 11:21 UNIT: [facility] ROOM: [facility] STUDY DESCRIPTION: CR Chest Single View Portable Attending Physician: Zach Constantino M.D. Ordering Physician: Zach Constantino M.D. Primary Care Physician: Wilton Guzman M.D. MEDICAL IMAGING REPORT This report is preliminary unless electronic signature is present EXAM Portable chest 08/02/2016 1121 hours HISTORY 61-year-old man post endotracheal tube placement today. Patient has shortness of air with swelling in legs. COMPARISON 07/31/2016. FINDINGS Portable upright chest demonstrates hardware at the upper thoracic spine. There is a new endotracheal tube with tip 3.6 cm above the olga. Right subclavian catheter tip is in the SVC. There is a nasogastric tube present with tip directed rightward in the epigastrium likely in the mid body of the stomach. There is increase in patchy parenchymal changes in the upper and mid lungs bilaterally with mild density at the right base. Findings could represent pneumonia or edema. No definite effusion. IMPRESSION 1. New endotracheal tube tip is 4.5 cm above the olga. Right PICC line tip is in the SVC and the enteric tube tip is directed rightward in the epigastrium likely in the body of the stomach. 2. Interval increase in patchy bilateral parenchymal densities in both lungs as compared to 07/31/2016. Findings could represent edema or pneumonia. No definite effusion or pneumothorax. Dictated by... Kanwal Lovett M.D. THIS IS AN ELECTRONICALLY VERIFIED REPORT Kanwal Lovett M.D. at 08/02/2016 2:27 PM [facility] A Service of [facility] & [facility] RADIOLOGY TEXT RESULTS PATIENT: IGOR MÁRQUEZ LOCATION: [place] [address] : [birth year] UNIT #: [id number] AGE: [address]: Zach Constantino MD SEX: M ORDER DR: JARROD/maximiliano TD: 08/02/2016 13:05 JOB #: [id number] MEDICAL IMAGING REPORT Page 1 of 1 COPY
--- NOTE | ~2016-07-25 | A ---
[facility] Nutrition Therapy DATE: 08/02/16 Patient: IGOR MÁRQUEZ Physician: DELFIN Address: [address] [facility] Room/Bed: [address], Zip: [place] [address] Admit Date: 07/25/16 Date of : [birth year] Height: 5 10 Weight: 194 88 NUTRITIONAL ASSESSMENT: REASON: CONSULT RE: TPN PT IS 61 Y.O. MALE ADMITTED FOR PNA PMH: COPD, MRSA, IRON-DEFICIENCY ANEMIA, DM, GASTROPARESIS, CHRONIC PANCREATITIS, GERD, HX OF CHOLY Anthropometrics: 5'10", WT: 190# (BEDSIDE) (86 KG), BMI: 27.3 Labs: GLU: 142, BUN: 39, CREAT: 1.9, CA+:7.6, ALB: 1.2, AST: 190, ALT: 191, M.4, PHOS: 5.1, PRE-ALB: <2.0, GFR: 37.7, K+:5.9 Meds: NACL, VERSED, PROTONIX, ZOFRAN, NOVOLOG, FUROSEMIDE, MAG SULFATE I/O & Bowel function: 4015/2515 Skin Integrity: NG TUBE TO LWS EDEMA: (L) HAND 1+ EDEMA & (R) HAND 1+ EDEMA Estimated Nutrition Needs: 9637-1798 KCAL (25-30 KCAL/KG BW) 94-112 6 G PRO (1.1-1.3 G PRO/KG BW) Assessment: CHART REVIEWED AND EVENTS NOTED. PT SEEN FOR TPN EVAL. PT CURRENTLY INTUBATED AND SEDATED AT TIME OF VISIT. NO FAMILY IN ROOM AT THIS TIME. PER RN AND CHART, PT TO HAVE HISTORY OF MULTIPLE PREVIOUS ABDOMINAL SURGERIES. AT THIS ADMIT, PT TO HAVE RECURRENT VENTRAL HERNIA W/INCARNATION OF COLON NOTED. PT IS S/P BOWEL RESECTION, EXPLORATORY LAP. PLANS IN PLACE FOR TPN. PER [employer], PT WEIGHED ~235# BACK IN JUNE 2016? AND WEIGHTS RANGED ~230-240# BACK IN 2014. RD TO FOLLOW. SEE RECOMMENDATIONS BELOW. Dx: INADEQUATE PROTEIN-ENERGY INTAKE R/T CLINICAL CONDITION AEB NPO STATUS, ?NEED FOR TPN, PT INTUBATED. Intervention: 1. NPO 2. RD CONSULT Monitoring, Evaluation and Goals: 1. PARENTERAL NUTRITION; PROVIDE ~80-100% ESTIMATED NUTRIENT NEEDS AT GOAL RATE X 24 HOURS 2. WEIGHTS; PREVENT FURTHER WEIGHT LOSS 3. LABS; WNL 4. GI; PROMOTE REGULAR GI FUNCTION [facility] Nutrition Therapy DATE: 08/02/16 Patient: IGOR MÁRQUEZ Physician: DELFIN Address: [address] [place] [address] Room/Bed: [address], Zip: [place] [address] Admit Date: 07/25/16 Date of : [birth year] Height: 5 10 Weight: 194 88 MONITOR: -PLANS FOR NUTRITION SUPPORT -WEIGHTS -LABS -EXTUBATION? Recommendations: 1. ONCE MEDICALLY FEASIBLE AND PT EXTUBATED, BEGIN WITH CLEARS AND ADVANCE DIET TOLERATED TO GI SOFT/LOW FIBER 2. IF PT REMAINS INTUBATED AND TPN WARRENTED, RECOMMEND TO BEGIN STANDARD TPN 25% DEXTROSE, 5% AA @ 20 ML/HR, ADVANCE 10 ML q 12 HOURS TO GOAL RATE OF 85 ML/HR -PROVIDES 102 G PRO, 1734 NON-PROTEIN KCAL, 2142 TOTAL KCAL (GUR: 4.1) 3. PLEASE MONITOR ELECTROLYTES DAILY-NOTED K+, PHOS ELEVATED AND MG LOW 4. OBTAIN TRIGLYCERIDE LEVELS. OF NOTE, PT HAS PMH CHRONIC PANCREATITIS. RD WILL F/U PER PROTOCOL PT IS SEVERELY COMPROMISED Respectfully, JARAD ASHBY MS, RD, LD [facility] cc: client file
--- NOTE | ~2016-07-25 | FU ---
[facility] Nutrition Therapy DATE: 08/05/16 Patient: IGOR MÁRQUEZ Physician: DELFIN Address: [address] [place] [address] Room/Bed: [address], Zip: [place] [address] Admit Date: 07/25/16 Date of : [birth year] Height: 5 10 Weight: 194 88 NUTRITION MONITORING/FOLLOW-UP: Reason: PT SEEN FOR FOLLOW-UP/TPN DX: VENTRAL HERNIA, PNA Anthropometrics: 5'10", WT: 194# (88 KG), BMI: 27.8 -STABLE WEIGHTS Labs: GLU: 136, BUN: 53, CA+:6.9, ALB: 1.0, AST: 100, ALT: 98, PHOS: 2.3, PRE-ALB:<2.0, GFR: 59.7, K+:2.9 Meds: TPN, NOVOLOG, H-CHLOR, VERSED, ZOFRAN, KCL, PEPCID I&O's: 3423/1915 Skin: OPEN WOUND ABD NOTED EDEMA: BLE & BUE GENERAL EDEMA; HIPS/ABD/ TRUNK 1+ EDEMA Estimated Nutrition Needs: 9237-7190 KCAL 94-112 G PRO Assessment: CHART REVIEWED AND EVENTS NOTED. PT SEEN FOR FOLLOW-UP TPN. PT CONTINUES TO BE INTUBATED AND SEDATED RECEIVING TPN 25% DEXTROSE, 5% AA @ 80 ML/HR + NO LIPIDS. PER RN AND CHART, PT TOLERATING TPN. NO FAMILY IN ROOM AT THIS TIME. OF NOTE, PT TO HAVE VENTRAL HERNIA W/?ISCHEMIC BOWEL. RD TO CONTINUE TO FOLLOW. -TPN PROVIDES 96 G PRO, 1632 NON-PROTEIN KCAL, 2016 TOTAL KCAL (GUR: 3.9) Dx: INADEQUATE PROTEIN-ENERGY INTAKE R/T CURRENT CLINICAL CONDITION AEB AEB NPO STATUS, NEED FOR TPN, PT INTUBATED. NEW DX: INADEQUATE PROTEIN-ENERGY INTAKE R/T CURRENT CLINICAL CONDITION, INTUBATION AEB PT RECEIVING TPN. Intervention: 1. TPN Monitoring, Evaluation and Goals: 1. PARENTERAL NUTRITION; PROVIDE >80% ESTIMATED NUTRIENT NEEDS-ACTIVE 2. WEIGHTS; PROMOTE WEIGHT MAINTENANCE-IN PROGRESS 3. LABS; WNL-LYTES + GLU-IN PROGRESS 4. GI; PROMOTE REGULAR GI FUNCTION-NOT MET/IN PROGRESS MONITOR: [facility] Nutrition Therapy DATE: 08/05/16 Patient: IGOR MÁRQUEZ Physician: DELFIN Address: [address] [facility] Room/Bed: [address], Zip: [place] [id number] Admit Date: 07/25/16 Date of : [birth year] Height: 5 10 Weight: 194 88 -TPN RATE/TOLERANCE -WEIGHTS -LABS -EXTUBATION? Recommendations: 1. RECOMMEND TO REPLETE LYTES (OF NOTE: K+ AND PHOS LOW) 2. RECOMMEND TO INCREASE CURRENT TPN 25% DEXTROSE, 5% AA TO GOAL RATE OF 85 ML/HR -PROVIDES 102 G PRO, 1734 NON-PROTEIN KCAL, 2142 TOTAL KCAL (GUR: 4.1) 3. PLEASE OBTAIN UPDATED TRIGLYCERIDES. 4. ONCE PT EXTUBATED AND ABLE TO TOLERATE PO INTAKE, BEGIN WITH CLEARS AND ADVANCE DIET TOLERATED TO GI SOFT/LOW FIBER RD WILL F/U PER PROTOCOL PT IS SEVERELY COMPROMISED Respectfully, JARAD ASHBY MS, RD, LD Food and Nutrition[facility] Services [facility] cc: client file
--- NOTE | ~2016-07-25 | CO ---
Unit #: [id number] #: [id number] Patient: ROBER WADE [id number] [place], [place] [address] [id number] I MR#: [id number] NAME: ROBER WADE. ROOM: 469 Age: 61 Sex: M Admission Date: 07/25/2016 : 1955 Attending Physician: Zach Constantino M.D. Primary Care Physician: Wilton Guzman M.D. Consultation Date: 08/02/2016 CONSULTATION REPORT REASON FOR CONSULT Renal insufficiency. Thank you very much for asking me to see this patient in consultation. HISTORY OF PRESENT ILLNESS Mr. Rober Wade is a 61-year-old male who presented here on 07/25/16 with a recurrent ventral hernia with incarceration of colon. He underwent surgery on that day with bowel resection. The patient was noted upon presentation there to have creatinine of 1.1. It did improve down to 0.7. It was up to a BUN of 35 and a creatinine of 1.2 this morning, at which time, Dr. Constantino called me and asked me to see the patient. Coming into the room, the patient apparently is getting ready to go to emergent exploratory laparotomy and my history is limited to the chart. The patient apparently has had some increasing shortness of breath over the last few days. He had a chest x-ray several days ago that was consistent with some bilateral congestion. He says he is still short of breath. He also, noted by a nurse, that he got short of breath several days ago after vomiting. He denies any chest pain. He is continuing to have nausea, vomiting, abdominal discomfort. PAST MEDICAL HISTORY Again, a history of recurrent ventral hernia. He is status post mesh infection in the past. On this hospitalization, removed. 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 He is status post appendectomy, status post cholecystectomy. SOCIAL HISTORY Previous smoker. None now. No alcohol. FAMILY HISTORY Noncontributory. ALLERGIES Penicillin and thiopental. MEDICATIONS 1. Lovenox. 2. Xanax. 3. Zofran. 4. Motrin. Unit #: [id number] #: [id number] Patient: ROBER WADE T 5. Roxicodone. 6. Protonix. 7. Ketoralac p.r.n. 8. Lasix. He received one dose several days ago. REVIEW OF SYSTEMS As mentioned in the HPI. He denies any severe headaches, visual problems, sinus problems. He does have intermittent cough, again shortness of breath. No neck pain. No chest pain, chest heaviness. No significant lower extremity swelling. No recent seizures or strokes. He does have a Peterson catheter that was placed several days ago. PHYSICAL EXAMINATION VITAL SIGNS: T-max 98.6. Pulse 91 to 110. Blood pressure 120 to 160/80 to 90. He had 3,121 in and out 2,115. Out of urine being 50. HEENT: Normocephalic, atraumatic. His pupils are equal, round, reactive to light. Hearing appears to be normal. Mouth is very dry. No erythema. No exudate. NECK: Supple. No adenopathy. CARDIAC: He has got a rub. No S3, S4. LUNGS: Bilateral rhonchi throughout. ABDOMEN: Wound is dressed. It is distended. Bowel sounds but decreased. Mild diffuse tenderness. EXTREMITIES: He has no significant lower extremity edema. His pulses are intact upper and lower extremities. JOINTS: No joint pain, joint swelling. SKIN: No acute rashes. NEUROLOGIC: He is alert and oriented to hospital but seems a little groggy. He is able to move all extremities. GENITOURINARY: Peterson catheter is in place. DIAGNOSTIC STUDIES LABORATORY: Sodium 138, potassium 5.1, chloride 113, BUN 35, creatinine 1.2 with a CO2 of 16, glucose 153, calcium 7.9, albumin 1.7, bilirubin 6.3, AST 316, ALT 310. Ammonia level 53. Hemoglobin is 13.2, white count 9,000, platelets 313,000. ASSESSMENT AND PLAN 1. Acute renal insufficiency. This gentleman had some mild decreased urine output as well as some mild increased BUN and creatinine. It certainly could be multifactorial. It certainly could be related to possible abdominal sepsis. I certainly agree with exploratory lap today. He is also on two different nonsteroidals p.r.n. We will stop these. He is also currently still on Protonix and we will discontinue this as well. We will order a portable renal ultrasound. We will check urine studies, UA, culture and sensitivity, urine eosinophil and random urine sodium. There was some question they were worried about hepatorenal. I am not sure if he has had cirrhosis or not. He does certainly have increased liver function tests now but I suspect it is more the combination of the above and not hepatorenal. Again, we will check a urine sodium and his blood pressure has not been low. We will change his IV fluids to D5W with three amps of bicarb per liter at 100 mL/hour for now, although, certainly, we will watch for fluid overload with his respiratory problems that he is currently having. 2. Shortness of breath. The patient does have increased shortness of breath now. I wonder if he has aspiration pneumonia as the etiology and not fluid overload, although it certainly can be. We will ask Unit #: [id number] #: [id number] Patient: ROBER WADE Pulmonary to see and would recommend transferring him to the ICU unit after he undergoes his exploratory lap today. 3. Again, status post hernia repair for reop today. 4. COPD. 5. Diabetes. I am putting him on D5W with three amps of bicarb. We will place him on insulin sliding scale. Dictated by... Zhou Barksdale M.D. BAILEE/josé TD: 08/02/2016 11:42 JOB #: [id number] CONSULTATION REPORT Page 1 of 1 X Saud Barksdale MD X CONSULTATION REPORT
--- NOTE | ~2016-07-25 | CR72 ---
[facility] A Service of [facility] & [facility] RADIOLOGY TEXT RESULTS PATIENT: IGOR MÁRQUEZ LOCATION: [place] [address] : [birth year] UNIT #: [id number] AGE: [address]: Zach Constantino MD SEX: M ORDER DR: [id number] [facility] [address] [facility]. [place], [place] [address] [id number] I MR#: [id number] Acc #: [id number] NAME: IGOR MÁRQUEZ. : 1955 SEX: M STUDY DATE/TIME: 08/06/2016 3:57 UNIT: [facility] ROOM: [facility] STUDY DESCRIPTION: CR Chest Single View Portable Attending Physician: Zach Constantino M.D. Ordering Physician: Zach Constantino M.D. Primary Care Physician: Wilton Guzman M.D. MEDICAL IMAGING REPORT This report is preliminary unless electronic signature is present EXAM Single view chest HISTORY Pneumonia. Left lower lobe infiltrate . FINDINGS Single portable AP view of the chest compared to 08/05/2016 and 08/04/16. Heart and mediastinal contours are unchanged. Support lines and tubes remain in place. Patchy airspace opacities, left greater than right are similar to the prior study. No pneumothorax. IMPRESSION No interval change. Dictated by... Andrews Moody M.D. THIS IS AN ELECTRONICALLY VERIFIED REPORT Andrews Moody M.D. at 08/08/2016 12:23 AM TRE/april TD: 08/06/2016 07:27 JOB #: [id number] MEDICAL IMAGING REPORT Page 1 of 1 COPY
--- NOTE | ~2016-07-25 | CO ---
Unit #: [id number] #: [id number] Patient: IGOR MÁRQUEZ [id number] [address] [address] [id number] I MR#: [id number] NAME: IGOR MÁRQUEZ. ROOM: [facility] Age: 61 Sex: M Admission Date: 07/25/2016 : 1955 Attending Physician: Zach Constantino M.D. Primary Care Physician: Wilton Guzman M.D. Consultation Date: 08/08/2016 CONSULTATION REPORT The patient was admitted to Dr. Constantino. REASON FOR CONSULTATION Fungemia. HISTORY OF PRESENT ILLNESS This is a 61-year-old male, who is currently on the ventilator and unable to provide any history. History is obtained via the ICU staff and review from the chart. The patient has had multiple previous abdominal surgeries in the past and has a past hernia repair with mesh. Patient now has been having some pain and a ventral hernia repair was deemed necessary secondary to some increasing GI dysfunction. Patient, per the operative note, appears to have had a history of infected mesh in the past. Approximately eight days after ventral hernia repair, patient had some abdominal distention, respiratory and renal insult and patient was taken back to the OR and found to have ischemic bowel and hernia mesh removal. The patient currently remained on the vent with TPN via PICC line. He is not on any pressor support but he was found to have blood cultures from August 02, 2016, one of two showing yeast. ID was asked to evaluate. PAST MEDICAL HISTORY 1. Recurrent ventral hernia with mesh infection in the past. 2. History of osteomyelitis with diskitis (MRSA) in the past. 3. History of gastroparesis. 4. Diabetes. 5. COPD. 6. Pancreatitis. 7. Degenerative disk disease. 8. GERD. 9. Appendectomy. 10. Cholecystectomy. ALLERGIES Penicillin and thiopental. MEDICATIONS Patient is currently on meropenem and Diflucan. For other medications, please refer to patient's MAR. SOCIAL HISTORY Per the chart, past tobacco. No alcohol. REVIEW OF SYSTEMS Unable to be done as patient is currently on the ventilator. Unit #: [id number] #: [id number] Patient: IGOR MÁRQUEZ PHYSICAL EXAMINATION VITAL SIGNS: Temperature 99.4 with a T-max of 100.6. Pulse 102, blood pressure 134/77, and respiratory rate is 24. GENERAL: This is a no apparent distress male who currently remains on the ventilator at 35% FIO2. HEENT: His pupils are sluggish. NECK: His neck is supple. CARDIOVASCULAR: S1, S2. Regular rate and rhythm. PULMONARY: Diminished in the bases with no wheezes or rhonchi noted. ABDOMEN: Wound VAC was removed with the (1) . There is no significant odor or purulent drainage. There was some serosanguineous ascites noted. There are some internal sutures without any evidence of purulence. EXTREMITIES: Upper extremity PICC line in place with no erythema. There is trace edema. DIAGNOSTIC STUDIES LABORATORY: BUN 34, creatinine 0.8, sodium 145, potassium 4, chloride 114, CO2 of 28. Bilirubin 4.3, AST 110, ALT 77, alkaline phosphatase 176; all of which have been trending down. Lactic acid on August 03 was 3.1. White blood cell count is 11, hemoglobin 9.5, hematocrit 30.1, platelets 105,000. MICROBIOLOGY: Sputum shows both klebsiella and proteus. Urine culture shows yeast on August 03. August 02 blood cultures 1/2 sets showing yeast. IMAGING: Chest film from today shows bilateral interstitial opacity, small right pleural effusion. IMPRESSION This is a 61-year-old male admitted for recurrent ventral hernia with incarceration of the colon, status post repair. Eight days postoperative from hernia repair, patient developed abdominal distention, respiratory and renal impairment and was taken back to the OR. Found to have ischemic bowel and hernia mesh removal was done. Patient remains on the ventilator and TPN for approximately one week via PICC line that was placed on July 31, 2016. Blood cultures are now showing yeast from August 02, 2016 in 1/2 blood cultures. At this time, will treat as fungemia, most likely source at this time appears to be his upper extremity PICC line. Wound appears clean at this time. The patient was also noted to have yeast in the urine. Patient has been on Diflucan empirically for several days and suspicion for non albicans Darby is high. Will discontinue Diflucan and will begin Mycamine 100 mg IV q.24 hours with first dose being now. Will ask the RN to help arrange removing the upper extremity PICC line, culture the tip, and place a triple lumen catheter. Will repeat blood cultures x2 at 30 minutes apart in the morning at 0600 and 6:30. Will check CBC and BMP in the morning. Patient has high risk for endocarditis due to fungemia and will check a 2D echocardiogram. Further recommendations to follow pending patient's workup and clinical course. This case will be discussed with Dr. Aaron Melton. Thank you for allowing us to participate in the care of this patient. Further recommendations to follow pending patient's clinical course. Dictated by... Naila MercedesPKasia for Unit #: [id number] #: [id number] Patient: YULISAIGORXiomara Shin/kika TD: 08/08/2016 10:51 JOB #: [id number] CONSULTATION REPORT Page 1 of 1 X X CONSULTATION REPORT
--- NOTE | ~2016-07-25 | EKG ---
PATIENT: IGOR MÁRQUEZ UNIT #: [id number] Ventricular Rate: 107 BPM Atrial Rate: 107 BPM P-R Interval: 134 ms QRS Duration: 78 ms Q-T Interval: 310 ms QTC Calculation(Bezet): 413 ms P [place]: 69 degrees Calculated R [place]: 55 degrees Calculated T [place]: 53 degrees Diagnosis Line: Sinus tachycardia Diagnosis Line: Otherwise normal ECG Diagnosis Line: When compared with ECG of 16-JUL-2016 08:10, Diagnosis Line: Vent. rate has increased BY 35 BPM Diagnosis Line: Nonspecific T wave abnormality now evident in Diagnosis Line: Anterior leads Diagnosis Line: Confirmed by RAMAN GAXIOLA MD ([id number]) on Diagnosis Line: 08/03/2016 4:27:47 PM INTERPRETING MD: KHALIDA RICHARDSON
--- NOTE | ~2016-07-25 | XA166 ---
[facility] A Service of [facility] & [facility] / [facility] RADIOLOGY TEXT RESULTS PATIENT: IGOR MÁRQUEZ LOCATION: [facility] 469-01 : [birth year] UNIT #: [id number] AGE: [address]: Zach Constantino MD SEX: M ORDER DR: [id number] [facility] [address] [facility]. [place], [place] [address] [id number] I MR#: [id number] Acc #: [id number] NAME: IGOR MÁRQUEZ. : 1955 SEX: M STUDY DATE/TIME: 07/31/2016 14:41 UNIT: [facility] ROOM: [facility] STUDY DESCRIPTION: XA PICC Line Placement WO Port Attending Physician: Zach Constantino M.D. Ordering Physician: Zach Constantino M.D. Primary Care Physician: Wilton Guzman M.D. MEDICAL IMAGING REPORT This report is preliminary unless electronic signature is present EXAM PICC line placement under ultrasound and fluoroscopy 07/31/2016 HISTORY History is no venous access. PRE-PROCEDURE The procedure was explained to the patient and/or patient quality assurance representative including risks, benefits, potential complications and potential for alternative forms of treatment. Informed consent was obtained, and prior to initiating the procedure a formal timeout procedure was performed. PROCEDURE Using full standard sterile barrier technique, including caps, gowns, gloves, masks, as well as sterile skin preparation and standard sterile draping, the right arm was prepped and draped in the usual fashion, and real-time sterile ultrasound guidance was used to localize an arm vein and to confirm vessel patency. A hard copy ultrasound image was recorded. The PICC line terminates in the SVC. After local anesthesia with 1% Xylocaine, the vein was punctured using real-time sterile ultrasound guidance, and an 0.018 guidewire was advanced into the superior vena cava, using fluoroscopic guidance. A 5-Hungarian dual-lumen 42 cm PICC was then measured and deployed with the tip positioned in the superior vena cava. The position of the line was documented with a radiographic image. The line was secured in place with an adhesive dressing and an antibiotic patch was applied. Total fluoro time was 1.1 minutes. IMPRESSION Successful placement of a 5-Hungarian dual-lumen PowerPICC via the right arm under ultrasound and fluoroscopic guidance. The tip of the PICC is in good position in the superior vena cava. 3 mGy air kerma. Puncture right STS. [facility] A Service of [facility] RADIOLOGY TEXT RESULTS PATIENT: IGOR MÁRQUEZ LOCATION: [facility] 469-01 : [birth year] UNIT #: [id number] AGE: [address]: Zach Constantino MD SEX: M ORDER DR: brachial vein. Dictated by... Albert Childress M.D. THIS IS AN ELECTRONICALLY VERIFIED REPORT Albert Childress M.D. at 08/01/2016 7:26 AM BLANCA/jonas TD: 07/31/2016 15:50 JOB #: [id number] MEDICAL IMAGING REPORT Page 1 of 1 COPY
--- NOTE | ~2016-07-25 | FU ---
[facility] Nutrition [facility] DATE: 08/08/16 Patient: IGOR MÁRQUEZ Physician: STEROB Address: [address] [place] [address] Room/Bed: [address], Zip: [place] [address] Admit Date: 07/25/16 Date of : [birth year] Height: 5 10 Weight: 195 88.5 NUTRITION MONITORING/FOLLOW-UP: Reason: TPN/ EN Follow up Anthropometrics: Ht: 5'10" Wt: 88.5 kg BMI: 28.0 Labs: Cl- 114 Gluc 131 BUN 34 Ca++ 7.5 Alb 1.0 AST 110 ALT 77 Phos 2.3 Accuchecks 119-129 (Trig WNL) Meds: TPN @ 90 mL/hr, zofran, protonix, novolog I&O's: 2886/2100, last BM 07/28 Skin: Wound vac to abdomen, PEG LUQ Edema: 1+ BLE/ BUE Generalized- Trunk Estimated Nutrition Needs: 7006-0357 kcals 94-112 grams protein Assessment: Chart reviewed, events noted. Pt remains intubated in the ICU and failed wean trial this AM per RN report. Pt receiving TPN (25% dextrose) @ 90 mL/hr. The pt is no longer receiving lipids per MD orders. Enteral nutrition was initiated at 0700, and the pt seems to be tolerating this per RN report. MD order in chart to discontinue TPN once enteral nutrition is at goal. RN reports increase to goal q 12 hrs as recommended by RD. Please note, the current nutrition regimen with TPN + EN is exceeding the pt's nutritional needs and providing 3348 kcals total. Last BM noted 07/28. Please see recommendations below. Dx: Inadequate protein-energy intake RT clinical condition, intubation AEB Pt receiving TPN- IN PROGRESS/ RESOLVING NEW DX: Excessive calorie intake RT current nutrition regimen (TPN + EN) AEB pt is receiving a total of 3348 kcals from EN and TPN combined. Intervention: 1. Wean TPN 2. Continue to increase EN to goal rate 3. Optimize bowel regimen [facility] Therapy DATE: 08/08/16 Patient: IGOR MÁRQUEZ Physician: STEROB Address: [address] [place] [address] Room/Bed: [address], Zip: [place] [address] Admit Date: 07/25/16 Date of : [birth year] Height: 5 10 Weight: 195 88.5 Monitoring, Evaluation and Goals: 1. TPN; provide >80% estimated nutrient needs- NO LONGER RELEVANT 2. Weight; Promote weight maintenance- IN PROGRESS 3. Labs; WNL- lytes + glucose- CONTINUE/ NOT MET 4. GI; promote regular GI function- CONTINUE/ NOT MET NEW GOALS: 1. TPN; gradually wean and D/C as EN is increased to goal 2. EN; tolerate, provide >80% goal volume x 24 hrs 3. Weight; promote maintenance 4. GI; promote regular GI function 5. Improve labs; glucose, phos Recommendations: 1. Replete phos PRN to WNL. Continue to monitor electrolytes and glucose levels closely. 2. Continue to advance Vital 1.5 by 10 mL q 12 hrs to goal of 60 mL/hr to provide: 2160 kcals/ 97 grams protein/ 1094 mL free H20 3. Gradually wean TPN as enteral nutrition is increased to goal rate, as the pt is receiving excess kcals at this time. Once the pt is tolerating Vital 1.5 @ 40 mL/hr (meets >60% of the pt's nutritional needs), discontinue TPN. 4. Once the pt is extubated, recommend diet advancement per CANCER GENETICS ASSISTANT + low fiber/ HH diet restrictions. Status: Pt is at moderate nutritional risk. RD will continue to follow. Respectfully, IRAM MCKENNA RD, LD [facility] cc: client file
--- NOTE | ~2016-07-25 | CR72 ---
[facility] A Service of [facility] & [facility] RADIOLOGY TEXT RESULTS PATIENT: IGOR MÁRQUEZ LOCATION: [place] [address] : [birth year] UNIT #: [id number] AGE: [address]: Zach Constantino MD SEX: M ORDER DR: [id number] [facility] [address] [facility]. [place], [place] [address] [id number] I MR#: [id number] Acc #: [id number] NAME: IGOR MÁRQUEZ : 1955 SEX: M STUDY DATE/TIME: 08/08/2016 3:28 UNIT: [facility] ROOM: [facility] STUDY DESCRIPTION: CR Chest Single View Portable Attending Physician: Zach Constantino M.D. Ordering Physician: Blayne Sierra M.D. Primary Care Physician: Wilton Guzman M.D. MEDICAL IMAGING REPORT This report is preliminary unless electronic signature is present EXAM Single view chest INDICATION Respiratory failure. Pleural effusion. FINDINGS Single portable AP view of the chest compared to 08/06/2016. Support lines and tubes are unchanged. Bilateral interstitial opacities and small right pleural effusion are unchanged. No pneumothorax. IMPRESSION No interval change. Dictated by... Andrews Moody M.D. THIS IS AN ELECTRONICALLY VERIFIED REPORT Andrews Moody M.D. at 08/08/2016 5:43 AM TRE/yariel TD: 08/08/2016 04:43 JOB #: [id number] MEDICAL IMAGING REPORT Page 1 of 1 COPY
--- NOTE | ~2016-07-25 | CR72 ---
[facility] A Service of [facility] & [facility] RADIOLOGY TEXT RESULTS PATIENT: IGOR MÁRQUEZ LOCATION: [place] [address] : [birth year] UNIT #: [id number] AGE: [address]: Zach Constantino MD SEX: M ORDER DR: [id number] [facility] [address] [facility]. [place], [place] [address] [id number] I MR#: [id number] Acc #: [id number] NAME: IGOR MÁRQUEZ. : 1955 SEX: M STUDY DATE/TIME: 08/08/2016 12:15 UNIT: [facility] ROOM: [facility] STUDY DESCRIPTION: CR Chest Single View Portable Attending Physician: Zach Constantino M.D. Ordering Physician: Physician Non-Staff Primary Care Physician: Wilton Guzman M.D. MEDICAL IMAGING REPORT This report is preliminary unless electronic signature is present EXAM Portable chest, 08/08/2016 at 12:15 COMPARISON 08/08/2016 at 03:28 a.m. HISTORY Right IJ central line insertion FINDINGS New right IJ central line tip lower SVC and no pneumothorax. NG tube and ET tube and right arm PICC line remain in place. ET tube terminates about 3.0 cm above the olga. Mild interstitial prominence but no consolidation or pneumothorax. Question tiny right effusion. Dictated by... Kareem Monet M.D. THIS IS AN ELECTRONICALLY VERIFIED REPORT Kareem Monet M.D. at 08/13/2016 12:15 PM ANGIE/amanda TD: 08/08/2016 13:20 JOB #: [id number] MEDICAL IMAGING REPORT Page 1 of 1 COPY
--- NOTE | ~2016-07-25 | OR ---
Unit #: [id number] #: [id number] Patient: IGOR WADE T [id number] [address] [place], [place] [address] [id number] I MR#: [id number] NAME: IGOR WADE ROOM: [facility] Date of Procedure: 08/02/2016 Admission Date: 07/25/2016 Surgeon: Zach Constantino M.D. : 1955 Attending Physician: Zach Constantino M.D. Primary Care Physician: Wilton Guzman M.D. OPERATIVE REPORT PREOPERATIVE DIAGNOSES Hernia disruption with ischemic small bowel. POSTOPERATIVE DIAGNOSES Hernia disruption with ischemic small bowel. PROCEDURES PERFORMED Exploratory laparotomy, removal of previously placed Strattice mesh, small-bowel resection, primary closure of abdominal wall. ANESTHESIA General endotracheal anesthesia. ESTIMATED BLOOD LOSS 50 mL. INDICATIONS FOR PROCEDURE Mr. Wade is a 61-year-old gentleman with multiple underlying medical conditions, who has had multiple previous abdominal operations. He had a long-standing ventral hernia that we had observed for a period of time because of his underlying medical conditions. However, he develops significant pain and incarceration and came in the hospital 8 days ago and underwent a repair of the hernia with bridging mesh using Strattice mesh. Postoperatively, he had some mild hepatic encephalopathy due to his underlying cirrhosis, but his abdominal exam was unremarkable and his Jose J-Hinojosa drainage was serosanguineous consistent with ascites and soft tissue seroma. Overnight, he had some vomiting and this morning on examination, his abdomen was distended where as before it was scaphoid and the character of the drainage from the Jose J-Hinojosa drain had changed. At the bedside, the wound was opened and in the subcutaneous tissue, there was an ischemic loop of small bowel that had come through the partially disrupted mesh that had been previously placed. The patient was hemodynamically stable, but was tachycardic and tachypneic and did have evidence on his labs of some early metabolic acidosis. He was brought urgently to the operating room. DESCRIPTION OF PROCEDURE After being transported to the operating room, the patient underwent general endotracheal anesthesia and suctioning out the endotracheal tube, it appeared as though has had some degree of aspiration. His abdomen was prepped and draped in usual sterile fashion. The remaining molly were removed and in the subcutaneous tissue, there was some enteric drainage Unit #: [id number] #: [id number] Patient: IGOR WADE into the subcutaneous tissue from a pinhole perforation in the ischemic bowel. This area was oversewn to prevent further leakage. I then cleaned out the enteric contents and removed the remainder of the mesh from the abdominal wall. Upon removing the remainder of the mesh, I could eviscerate the rest of the bowel and evaluated. The ischemic portion was clamped, divided, and ligated proximally and distally with LUCIO staplers. The mesentery was clamped, divided, and ligated and the ischemic portion was removed. We irrigated and cleaned out any residual drainage from the subcutaneous tissue and then copiously irrigated the peritoneal cavity with bacitracin solution. The irrigant came back clear. There was minimal to no contamination in the peritoneal cavity. An NG tube had been placed by Anesthesia and it was well positioned. I then ran all the rest of the bowel. There was one area in the small bowel that was probably also partially incarcerated where the mesh had disrupted and there was some bruising to this serosa, but no serosal disruption; however, this area after a while was re-evaluated and it did not appears though there was any perforation or leakage from this area, but due to the degree of bruising, I was concerned it may progress to ischemia and perforation, so this area was resected and an anastomosis was performed at this site. All staple lines were oversewn after a standard functional end-to-end [id number] stapled anastomosis was performed using LUCIO staplers. The anastomosis was widely patent and I could palpate the bowel and push enteric contents through without difficulty and there was no leakage. I then went to the area of the primary resection where the ischemic bowel was and again performed a functional end-to-end [id number] stapled anastomosis using a LUCIO stapler. The open end here was closed with a TA 60 stapler and the mesentery was clamped, divided, and ligated. All staple lines were again oversewn with 3-0 silk suture and the mesenteric defect was closed with 3-0 silk suture. I then reduced all the small bowel back into the peritoneal cavity. I copiously irrigated the peritoneal cavity again. There was good hemostasis. There were no contamination in the enteric contents. However, there had been contamination of the subcutaneous tissue, so I opted not to reclose the hernia with mesh knowing that down the road he certainly could be at risk for recurrent incisional hernia. The fascial defect was closed with multiple closely spaced #1 Vicryl Smead-Saxena sutures. The fascia closed without excess difficulty. We then irrigated the soft tissue again with bacitracin, packed the wound open with Kerlix soaked in Betadine. ABDs and Musa straps were placed as a dressing. Sponges and needle counts were correct x3. The patient will be left on the ventilator due to his aspiration, transported to the recovery room and then admitted to the intensive care unit. Dictated by... Xiomara Ferrer/gustavo TD: 08/03/2016 02:13 JOB #: [id number] Unit #: [id number] #: [id number] Patient: IGOR WADE OPERATIVE REPORT Page 1 of 1 X Zach Constantino MD PROCEDURE OPERATIVE NOTE
--- NOTE | ~2016-07-25 | US77 ---
[facility] A Service of [facility] RADIOLOGY TEXT RESULTS PATIENT: IGOR MÁRQUEZ LOCATION: [address] : [birth year] UNIT #: [id number] AGE: [address]: Zach Constantino MD SEX: M ORDER DR: [id number] [place] [id number] [facility]. [place], [place] [address] [id number] I MR#: [id number] Acc #: [id number] NAME: IGOR MÁRQUEZ. : 1955 SEX: M STUDY DATE/TIME: 08/02/2016 18:16 UNIT: [facility] ROOM: [facility] STUDY DESCRIPTION: US Kidney Bilateral Complete Attending Physician: Zach Constantino M.D. Ordering Physician: Zhou Barksdale M.D. Primary Care Physician: Wilton Guzman M.D. MEDICAL IMAGING REPORT This report is preliminary unless electronic signature is present EXAM Renal ultrasound bilateral 08/02/2016 INDICATIONS Acute renal failure. BUN 39, creatinine 1.9, eGFR 37. TECHNIQUE Sonographic imaging of the kidneys was performed bilaterally. COMPARISON STUDIES Correlation is made with CT 07/06/2016. FINDINGS The kidneys are partially obscured by bowel gas, particularly on the left. The right measures 9.7 cm long axis and the left 10.3 cm. No hydronephrosis on either side. Probable non-obstructing stones in the left kidney. Tiny sand-like stones were also seen on the recent CT. No perinephric fluid collection. Small amount of perihepatic and pelvic ascites. Bladder decompressed by a Peterson catheter. IMPRESSION 1. No hydronephrosis of either kidney. Probable non-obstructing stones in the left kidney. 2. Bladder decompressed by a Peterson catheter. 3. Incidental ascites. Dictated by... Valentino Murry M.D. THIS IS AN ELECTRONICALLY VERIFIED REPORT Valentino Murry M.D. at 08/03/2016 4:13 PM [facility] A Service of [facility] RADIOLOGY TEXT RESULTS PATIENT: IGOR MÁRQUEZ LOCATION: [address] : [birth year] UNIT #: [id number] AGE: [address]: Zach Constantino MD SEX: M ORDER DR: RONAK/henrik TD: 08/02/2016 22:48 JOB #: [id number] MEDICAL IMAGING REPORT Page 1 of 1 COPY
[~2016-07-25 07:10] MED LIST changes: -HUMALOG100 UNIT/1 SUBQ; -HYDROMORPHONE ER8 MG PO
[2016-07-25] MEDS ORDERED: XANAX2 MG PO (08:26)
[2016-07-25] MEDS ORDERED: NEURONTIN800 MG PO (08:26)
[2016-07-25] MEDS ORDERED: PERCOCET10 PO (08:27)
[2016-07-25] MEDS ORDERED: HYDROMORPHONE ER8 MG PO (08:27)
[2016-07-25] MEDS ORDERED: HUMALOG100 UNIT/1 SUBQ (08:39)
[2016-07-26 05:24] LABS: BASOPHIL% 0.5 % (0-2.5); EOSINOPHIL# 0.1 X10e3 (0-0.7); EOSINOPHIL% 1.1 % (0.0-7.0); HEMATOCRIT 36.7 % (38.0-50.0); HEMOGLOBIN 11.9 gm/dL (13.0-16.0); LYMPHOCYTE# 1.2 X10e3 (1.0-3.5); LYMPHOCYTE% 17.9 % (17.0-45.0); MEAN CELL VOLUME 97.8 FL (83-96); MEAN CORPUSCULAR HEMOGLOBIN 31.8 PG (28-34); MEAN CORPUSCULAR HGB CONC 32.5 g/dL (30-36); MEAN PLATELET VOLUME 8.4 FL (6.5-11.5); MONOCYTE# 0.6 X10e3 (0-1.0); MONOCYTE% 9.8 % (3.0-12.0); NEUTROPHIL# 4.6 X10e3 (1.5-7.1); NEUTROPHIL% 70.7 % (40-75); PLATELET COUNT 152 X10e3 (140-420); RED BLOOD COUNT 3.75 X10e (3.90-5.60); RED CELL DISTRIBUTION WIDTH 14.5 % (11.0-15.5); WHITE BLOOD COUNT 6.5 X10e3 (4.0-10.5)
[2016-07-26 05:34] LABS: DIFF IND NO
[2016-07-26 07:16] LABS: BUN/CREATININE RATIO 13.63; CALCIUM SERUM 7.5 mg/dL (8.4-10.2); CREATININE SERUM 1.1 mg/dL (0.6-1.4); GLOM FILT RATE Estimated 73.1 mL/min (>60); MAGNESIUM 1.5 mg/dL (1.6-3.0)
[2016-07-28 12:12] LABS: BUN/CREATININE RATIO 27.14; CALCIUM SERUM 7.7 mg/dL (8.4-10.2); CREATININE SERUM 0.7 mg/dL (0.6-1.4); GLOM FILT RATE Estimated 103.3 mL/min (>60); MAGNESIUM 1.8 mg/dL (1.6-3.0); POTASSIUM 4.6 mmol/L (3.5-5.1)
[2016-07-28 12:37] LABS: HEMATOCRIT 38.4 % (38.0-50.0); HEMOGLOBIN 12.5 gm/dL (13.0-16.0); MEAN CELL VOLUME 97.1 FL (83-96); MEAN CORPUSCULAR HEMOGLOBIN 31.6 PG (28-34); MEAN CORPUSCULAR HGB CONC 32.5 g/dL (30-36); MEAN PLATELET VOLUME 9.6 FL (6.5-11.5); RED BLOOD COUNT 3.96 X10e (3.90-5.60); RED CELL DISTRIBUTION WIDTH 14.8 % (11.0-15.5); WHITE BLOOD COUNT 12.1 X10e3 (4.0-10.5)
[2016-07-30 03:35] LABS: BASOPHIL# 0.1 X10e3 (0-0.3); BASOPHIL% 0.9 % (0-2.5); DIFF IND NO; EOSINOPHIL# 0.1 X10e3 (0-0.7); EOSINOPHIL% 1.9 % (0.0-7.0); HEMATOCRIT 37.6 % (38.0-50.0); HEMOGLOBIN 12.2 gm/dL (13.0-16.0); LYMPHOCYTE# 1.3 X10e3 (1.0-3.5); LYMPHOCYTE% 21.9 % (17.0-45.0); MEAN CELL VOLUME 97.5 FL (83-96); MEAN CORPUSCULAR HEMOGLOBIN 31.7 PG (28-34); MEAN CORPUSCULAR HGB CONC 32.5 g/dL (30-36); MEAN PLATELET VOLUME 8.4 FL (6.5-11.5); MONOCYTE# 0.6 X10e3 (0-1.0); MONOCYTE% 9.2 % (3.0-12.0); NEUTROPHIL% 66.1 % (40-75); PLATELET COUNT 156 X10e3 (140-420); RED BLOOD COUNT 3.86 X10e (3.90-5.60); RED CELL DISTRIBUTION WIDTH 14.9 % (11.0-15.5)
[2016-07-30 04:01] LABS: ALBUMIN SERUM 1.7 g/dL (3.5-5.0); BILIRUBIN,TOTAL 5.5 mg/dL (0.2-2.0); BUN/CREATININE RATIO 26.66; CALCIUM SERUM 7.9 mg/dL (8.4-10.2); CREATININE SERUM 0.9 mg/dL (0.6-1.4); GLOM FILT RATE Estimated 93.2 mL/min (>60); POTASSIUM 4.5 mmol/L (3.5-5.1); PROTEIN TOTAL SERUM 5.5 g/dL (6.0-8.3)
[2016-07-31 07:47] LABS: ARTERIAL BLOOD GAS CARBOXY HB 1.3 %sat (0.0-9.0); ARTERIAL BLOOD GAS HCO3 24.7 mmol/L; ARTERIAL BLOOD GAS PCO2 34.9 mmHg (35.0-45.0); ARTERIAL BLOOD GAS PO2 84.8 mmHg (80.0-100); ARTERIAL BLOOD GAS pH 7.458 (7.350-7.450)
[2016-07-31 07:49] LABS: ARTERIAL BLOOD GAS ART SITE LEFT RADIAL; ARTERIAL BLOOD GAS DELIVERY NASAL CANNULA; ARTERIAL DRAW? YES
[2016-07-31 10:24] LABS: HEMATOCRIT 36.7 % (38.0-50.0); HEMOGLOBIN 12.1 gm/dL (13.0-16.0); MEAN CORPUSCULAR HEMOGLOBIN 31.9 PG (28-34); MEAN CORPUSCULAR HGB CONC 32.9 g/dL (30-36); MEAN PLATELET VOLUME 7.9 FL (6.5-11.5); RED BLOOD COUNT 3.79 X10e (3.90-5.60); RED CELL DISTRIBUTION WIDTH 15.3 % (11.0-15.5)
[2016-07-31 10:40] LABS: INR 1.3; PARTIAL THROMBOPLASTIN TIME 27.4 SECONDS (23.5-31.3); PROTHROMBIN TIME (PATIENT) 13.3 SECONDS (9.6-11.5)
[2016-07-31 10:50] LABS: ALBUMIN SERUM 1.7 g/dL (3.5-5.0); BUN/CREATININE RATIO 26.36; CALCIUM SERUM 7.8 mg/dL (8.4-10.2); CREATININE SERUM 1.1 mg/dL (0.6-1.4); GLOM FILT RATE Estimated 73.1 mL/min (>60); POTASSIUM 4.8 mmol/L (3.5-5.1); PROTEIN TOTAL SERUM 5.4 g/dL (6.0-8.3)
[2016-07-31 10:51] LABS: BILIRUBIN,TOTAL 7.3 mg/dL (0.2-2.0)
[2016-07-31 14:25] LABS: AMPHETAMINE NEG (NEG); BARBITURATES NEG (NEG); BENZODIAZEPINES POS (NEG); COCAINE NEG (NEG); MARIJUANA NEG (NEG); OPIATES POS (NEG); TRICYCLIC ANTIDEPRESSANTS NEG (NEG); U METHADONE NEG (NEG)
[2016-08-01 03:33] LABS: HEMATOCRIT 35.7 % (38.0-50.0); HEMOGLOBIN 11.7 gm/dL (13.0-16.0); MEAN CELL VOLUME 97.1 FL (83-96); MEAN CORPUSCULAR HEMOGLOBIN 31.9 PG (28-34); MEAN CORPUSCULAR HGB CONC 32.9 g/dL (30-36); RED BLOOD COUNT 3.67 X10e (3.90-5.60); RED CELL DISTRIBUTION WIDTH 15.6 % (11.0-15.5); WHITE BLOOD COUNT 6.5 X10e3 (4.0-10.5)
[2016-08-01 04:12] LABS: ALBUMIN SERUM 1.7 g/dL (3.5-5.0); BILIRUBIN,TOTAL 7.1 mg/dL (0.2-2.0); BUN/CREATININE RATIO 29.09; CALCIUM SERUM 7.5 mg/dL (8.4-10.2); CREATININE SERUM 1.1 mg/dL (0.6-1.4); GLOM FILT RATE Estimated 73.1 mL/min (>60); MAGNESIUM 1.7 mg/dL (1.6-3.0); PHOSPHOROUS 3.8 mg/dL (2.5-4.6); POTASSIUM 5.3 mmol/L (3.5-5.1); PROTEIN TOTAL SERUM 5.4 g/dL (6.0-8.3)
[2016-08-02 03:59] LABS: HEMATOCRIT 40.7 % (38.0-50.0); HEMOGLOBIN 13.2 gm/dL (13.0-16.0); MEAN CELL VOLUME 97.8 FL (83-96); MEAN CORPUSCULAR HEMOGLOBIN 31.7 PG (28-34); MEAN CORPUSCULAR HGB CONC 32.5 g/dL (30-36); MEAN PLATELET VOLUME 8.4 FL (6.5-11.5); RED BLOOD COUNT 4.16 X10e (3.90-5.60); RED CELL DISTRIBUTION WIDTH 16.4 % (11.0-15.5)
[2016-08-02 04:28] LABS: ALBUMIN SERUM 1.7 g/dL (3.5-5.0); BILIRUBIN,TOTAL 6.3 mg/dL (0.2-2.0); BUN/CREATININE RATIO 29.16; CALCIUM SERUM 7.9 mg/dL (8.4-10.2); CREATININE SERUM 1.2 mg/dL (0.6-1.4); GLOM FILT RATE Estimated 65.8 mL/min (>60); POTASSIUM 5.1 mmol/L (3.5-5.1); PROTEIN TOTAL SERUM 5.9 g/dL (6.0-8.3)
[2016-08-02 07:24] LABS: ARTERIAL BLD GAS O2 SATURATION 84.6 % (90.0-100.0); ARTERIAL BLOOD GAS CARBOXY HB 1.2 %sat (0.0-9.0); ARTERIAL BLOOD GAS HCO3 14.1 mmol/L; ARTERIAL BLOOD GAS MET HB 0.7 %sat (0.0-2.0); ARTERIAL BLOOD GAS PCO2 24.1 mmHg (35.0-45.0); ARTERIAL BLOOD GAS pH 7.378 (7.350-7.450)
[2016-08-02 07:26] LABS: ARTERIAL BLOOD GAS ALLEN TEST NORMAL; ARTERIAL BLOOD GAS ART SITE RIGHT RADIAL; ARTERIAL BLOOD GAS DELIVERY NASAL CANNULA; ARTERIAL BLOOD GAS PO2 52.8 mmHg (80.0-100); ARTERIAL DRAW? YES
[2016-08-02 11:36] LABS: ARTERIAL BLD GAS O2 SATURATION 94.1 % (90.0-100.0); ARTERIAL BLOOD GAS CARBOXY HB 1.2 %sat (0.0-9.0); ARTERIAL BLOOD GAS HCO3 15.2 mmol/L; ARTERIAL BLOOD GAS MET HB 1.1 %sat (0.0-2.0)
[2016-08-02 11:38] LABS: ARTERIAL BLOOD GAS ALLEN TEST NORMAL; ARTERIAL BLOOD GAS ART SITE RIGHT RADIAL; ARTERIAL BLOOD GAS DELIVERY VENT; ARTERIAL BLOOD GAS PCO2 50.9 mmHg (35.0-45.0); ARTERIAL BLOOD GAS VENT MODE AC; ARTERIAL BLOOD GAS pH 7.082 (7.350-7.450); ARTERIAL DRAW? YES
[2016-08-02 11:59] LABS: BASOPHIL% 0.3 % (0-2.5); EOSINOPHIL% 0.2 % (0.0-7.0); HEMATOCRIT 35.9 % (38.0-50.0); HEMOGLOBIN 11.3 gm/dL (13.0-16.0); LYMPHOCYTE# 0.8 X10e3 (1.0-3.5); LYMPHOCYTE% 8.5 % (17.0-45.0); MEAN CORPUSCULAR HGB CONC 31.6 g/dL (30-36); MEAN PLATELET VOLUME 7.8 FL (6.5-11.5); MONOCYTE# 0.3 X10e3 (0-1.0); MONOCYTE% 3.8 % (3.0-12.0); NEUTROPHIL# 7.8 X10e3 (1.5-7.1); NEUTROPHIL% 87.2 % (40-75); PLATELET COUNT 213 X10e3 (140-420); RED BLOOD COUNT 3.54 X10e (3.90-5.60); RED CELL DISTRIBUTION WIDTH 16.5 % (11.0-15.5)
[2016-08-02 12:21] LABS: ALBUMIN SERUM 1.2 g/dL (3.5-5.0); ALKALINE PHOSPHATASE 335 U/L (32-92); ALT (SGPT) 191 U/L (10-40); AST (SGOT) 190 U/L (10-42); BLOOD UREA NITROGEN 34 mg/dL (9-23); BUN/CREATININE RATIO 24.28; CALCIUM SERUM 6.2 mg/dL (8.4-10.2); CARBON DIOXIDE 14 mmol/L (22-31); CHLORIDE 120 mmol/L (100-111); CREATININE SERUM 1.4 mg/dL (0.6-1.4); GLOM FILT RATE Estimated 54.6 mL/min (>60); GLUCOSE FASTING 129 mg/dL (70-110); MAGNESIUM 1.4 mg/dL (1.6-3.0); PHOSPHOROUS 5.1 mg/dL (2.5-4.6); POTASSIUM 4.6 mmol/L (3.5-5.1); PROTEIN TOTAL SERUM 4.3 g/dL (6.0-8.3); SODIUM 140 mmol/L (135-145)
[2016-08-02 12:24] LABS: BILIRUBIN,TOTAL 4.1 mg/dL (0.2-2.0); PREALBUMIN <2.0 mg/dL (17.0-42.0)
[2016-08-02 12:30] LABS: MEAN CELL VOLUME 101.2 FL (83-96)
[2016-08-02 12:33] LABS: DIFF IND NO
[2016-08-02 13:53] LABS: BUN/CREATININE RATIO 20.52; CALCIUM SERUM 7.6 mg/dL (8.4-10.2); CREATININE SERUM 1.9 mg/dL (0.6-1.4); GLOM FILT RATE Estimated 37.7 mL/min (>60)
[2016-08-02 13:55] LABS: POTASSIUM 5.9 mmol/L (3.5-5.1)
[2016-08-02 13:58] LABS: CK TOTAL 28 IU/L (36-174)
[2016-08-02 18:32] LABS: BUN/CREATININE RATIO 18.69; CALCIUM SERUM 7.1 mg/dL (8.4-10.2); CREATININE SERUM 2.3 mg/dL (0.6-1.4); POTASSIUM 5.1 mmol/L (3.5-5.1)
[2016-08-03 01:24] LABS: URINE SOURCE CATH
[2016-08-03 01:28] LABS: URINE APPEARANCE CLOUDY; URINE BLOOD 3+ (NEG); URINE COLOR DK YELLOW; URINE GLUCOSE NEG (NEG); URINE KETONE NEG (NEG); URINE LEUKOCYTE ESTERASE 2+ (NEG); URINE NITRATE NEG (NEG); URINE PROTEIN 1+ (NEG); URINE SPECIFIC GRAVITY 1.016 (1.003-1.035)
[2016-08-03 01:31] LABS: URINE BACTERIA AUWI NEG (NEGATIVE); URINE SQUAMOUS EPITHELIAL CELL NONE SEEN /[HPF]; UWBCS1 AUWI 50-100 (0-5)
[2016-08-03 02:10] LABS: URINE BILIRUBIN POS (NEG)
[2016-08-03 02:12] LABS: URINE YEAST PRESENT
[2016-08-03 04:07] LABS: ARTERIAL BLD GAS O2 SATURATION 96.3 % (90.0-100.0); ARTERIAL BLOOD GAS HCO3 22.6 mmol/L; ARTERIAL BLOOD GAS MET HB 1.1 %sat (0.0-2.0); ARTERIAL BLOOD GAS PCO2 38.2 mmHg (35.0-45.0)
[2016-08-03 04:17] LABS: ARTERIAL BLOOD GAS ALLEN TEST NORMAL; ARTERIAL BLOOD GAS ART SITE RIGHT RADIAL; ARTERIAL BLOOD GAS DELIVERY VENT; ARTERIAL BLOOD GAS VENT MODE AC; ARTERIAL DRAW? YES
[2016-08-03 05:44] LABS: BASOPHIL% 0.2 % (0-2.5); HEMATOCRIT 34.1 % (38.0-50.0); LYMPHOCYTE# 0.5 X10e3 (1.0-3.5); LYMPHOCYTE% 4.5 % (17.0-45.0); MEAN CELL VOLUME 99.8 FL (83-96); MEAN CORPUSCULAR HGB CONC 32.1 g/dL (30-36); MEAN PLATELET VOLUME 8.4 FL (6.5-11.5); MONOCYTE# 0.3 X10e3 (0-1.0); MONOCYTE% 2.7 % (3.0-12.0); NEUTROPHIL% 92.6 % (40-75); PLATELET COUNT 147 X10e3 (140-420); RED BLOOD COUNT 3.42 X10e (3.90-5.60); RED CELL DISTRIBUTION WIDTH 16.1 % (11.0-15.5); WHITE BLOOD COUNT 11.8 X10e3 (4.0-10.5)
[2016-08-03 05:52] LABS: DIFF IND NO
[2016-08-03 06:09] LABS: ALBUMIN SERUM 1.2 g/dL (3.5-5.0); BILIRUBIN,TOTAL 3.3 mg/dL (0.2-2.0); BUN/CREATININE RATIO 21.53; CALCIUM SERUM 6.6 mg/dL (8.4-10.2); CREATININE SERUM 2.6 mg/dL (0.6-1.4); GLOM FILT RATE Estimated 25.8 mL/min (>60); MAGNESIUM 2.1 mg/dL (1.6-3.0); PHOSPHOROUS 4.1 mg/dL (2.5-4.6); POTASSIUM 4.7 mmol/L (3.5-5.1); PROTEIN TOTAL SERUM 4.4 g/dL (6.0-8.3)
[2016-08-03 07:14] LABS: %MB 2.7 % (0.0-4.0); MB 3.5 ng/ml
[2016-08-03 15:17] LABS: HA AB IGM (HEPPAN) Nonreactive (()); HB CORE AB IGM (HEPPAN) Reactive (Nonreactive); HB S AG (HEPPAN) Reactive (Nonreactive); HEP C AB (HEPPAN) Reactive (Nonreactive)
[2016-08-04 04:03] LABS: ARTERIAL BLD GAS O2 SATURATION 97.5 % (90.0-100.0); ARTERIAL BLOOD GAS HCO3 33.2 mmol/L; ARTERIAL BLOOD GAS MET HB 0.9 %sat (0.0-2.0); ARTERIAL BLOOD GAS PCO2 38.8 mmHg (35.0-45.0)
[2016-08-04 04:17] LABS: ARTERIAL BLOOD GAS ALLEN TEST NORMAL; ARTERIAL BLOOD GAS ART SITE RIGHT RADIAL; ARTERIAL BLOOD GAS DELIVERY VENT; ARTERIAL BLOOD GAS VENT MODE AC; ARTERIAL DRAW? YES
[2016-08-04 04:31] LABS: BASOPHIL% 0.3 % (0-2.5); EOSINOPHIL% 0.1 % (0.0-7.0); HEMATOCRIT 31.8 % (38.0-50.0); HEMOGLOBIN 10.3 gm/dL (13.0-16.0); LYMPHOCYTE# 0.7 X10e3 (1.0-3.5); LYMPHOCYTE% 8.9 % (17.0-45.0); MEAN CELL VOLUME 97.7 FL (83-96); MEAN CORPUSCULAR HEMOGLOBIN 31.6 PG (28-34); MEAN CORPUSCULAR HGB CONC 32.4 g/dL (30-36); MEAN PLATELET VOLUME 8.6 FL (6.5-11.5); MONOCYTE# 0.3 X10e3 (0-1.0); MONOCYTE% 3.6 % (3.0-12.0); NEUTROPHIL# 6.7 X10e3 (1.5-7.1); NEUTROPHIL% 87.1 % (40-75); PLATELET COUNT 112 X10e3 (140-420); RED BLOOD COUNT 3.25 X10e (3.90-5.60); RED CELL DISTRIBUTION WIDTH 16.2 % (11.0-15.5); WHITE BLOOD COUNT 7.7 X10e3 (4.0-10.5)
[2016-08-04 04:39] LABS: DIFF IND NO
[2016-08-04 04:53] LABS: INR 1.4; PROTHROMBIN TIME (PATIENT) 15.3 SECONDS (9.6-11.5)
[2016-08-04 05:12] LABS: ALBUMIN SERUM 1.1 g/dL (3.5-5.0); BUN/CREATININE RATIO 30.47; CALCIUM SERUM 6.5 mg/dL (8.4-10.2); CREATININE SERUM 2.1 mg/dL (0.6-1.4); GLOM FILT RATE Estimated 33.5 mL/min (>60); MAGNESIUM 1.9 mg/dL (1.6-3.0); PHOSPHOROUS 3.2 mg/dL (2.5-4.6); POTASSIUM 3.8 mmol/L (3.5-5.1); PROTEIN TOTAL SERUM 4.1 g/dL (6.0-8.3)
[2016-08-05 04:20] LABS: ARTERIAL BLD GAS O2 SATURATION 98.5 % (90.0-100.0); ARTERIAL BLOOD GAS CARBOXY HB 0.8 %sat (0.0-9.0); ARTERIAL BLOOD GAS HCO3 35.7 mmol/L; ARTERIAL BLOOD GAS MET HB 0.8 %sat (0.0-2.0); ARTERIAL BLOOD GAS PCO2 39.4 mmHg (35.0-45.0); ARTERIAL BLOOD GAS pH 7.566 (7.350-7.450)
[2016-08-05 04:29] LABS: BASOPHIL% 0.3 % (0-2.5); EOSINOPHIL% 0.3 % (0.0-7.0); HEMATOCRIT 29.5 % (38.0-50.0); HEMOGLOBIN 9.9 gm/dL (13.0-16.0); LYMPHOCYTE# 0.6 X10e3 (1.0-3.5); LYMPHOCYTE% 8.7 % (17.0-45.0); MEAN CELL VOLUME 96.9 FL (83-96); MEAN CORPUSCULAR HEMOGLOBIN 32.5 PG (28-34); MEAN CORPUSCULAR HGB CONC 33.6 g/dL (30-36); MEAN PLATELET VOLUME 8.9 FL (6.5-11.5); MONOCYTE# 0.3 X10e3 (0-1.0); MONOCYTE% 4.8 % (3.0-12.0); NEUTROPHIL# 6.1 X10e3 (1.5-7.1); NEUTROPHIL% 85.9 % (40-75); PLATELET COUNT 101 X10e3 (140-420); RED BLOOD COUNT 3.05 X10e (3.90-5.60); RED CELL DISTRIBUTION WIDTH 16.4 % (11.0-15.5); WHITE BLOOD COUNT 7.1 X10e3 (4.0-10.5)
[2016-08-05 04:30] LABS: DIFF IND NO
[2016-08-05 04:43] LABS: ARTERIAL BLOOD GAS ALLEN TEST NORMAL; ARTERIAL BLOOD GAS ART SITE RIGHT RADIAL; ARTERIAL BLOOD GAS DELIVERY VENT; ARTERIAL BLOOD GAS VENT MODE AC; ARTERIAL DRAW? YES
[2016-08-05 05:28] LABS: BILIRUBIN,TOTAL 3.6 mg/dL (0.2-2.0); BUN/CREATININE RATIO 40.76; CALCIUM SERUM 6.9 mg/dL (8.4-10.2); CREATININE SERUM 1.3 mg/dL (0.6-1.4); GLOM FILT RATE Estimated 59.7 mL/min (>60); MAGNESIUM 1.8 mg/dL (1.6-3.0); PHOSPHOROUS 2.3 mg/dL (2.5-4.6); PROTEIN TOTAL SERUM 4.1 g/dL (6.0-8.3)
[2016-08-05 05:39] LABS: POTASSIUM 2.9 mmol/L (3.5-5.1)
[2016-08-06 04:03] LABS: ARTERIAL BLD GAS O2 SATURATION 97.4 % (90.0-100.0); ARTERIAL BLOOD GAS CARBOXY HB 1.3 %sat (0.0-9.0); ARTERIAL BLOOD GAS HCO3 34.4 mmol/L; ARTERIAL BLOOD GAS MET HB 0.7 %sat (0.0-2.0); ARTERIAL BLOOD GAS PCO2 48.9 mmHg (35.0-45.0); ARTERIAL BLOOD GAS pH 7.455 (7.350-7.450)
[2016-08-06 04:05] LABS: ARTERIAL BLOOD GAS ALLEN TEST NORMAL; ARTERIAL BLOOD GAS ART SITE RIGHT RADIAL; ARTERIAL BLOOD GAS DELIVERY VENT; ARTERIAL BLOOD GAS VENT MODE AC; ARTERIAL DRAW? YES
[2016-08-06 04:22] LABS: BASOPHIL% 0.6 % (0-2.5); EOSINOPHIL# 0.2 X10e3 (0-0.7); EOSINOPHIL% 2.6 % (0.0-7.0); HEMATOCRIT 29.5 % (38.0-50.0); HEMOGLOBIN 9.5 gm/dL (13.0-16.0); LYMPHOCYTE# 0.9 X10e3 (1.0-3.5); MEAN CELL VOLUME 98.8 FL (83-96); MEAN CORPUSCULAR HGB CONC 32.3 g/dL (30-36); MEAN PLATELET VOLUME 9.6 FL (6.5-11.5); MONOCYTE# 0.5 X10e3 (0-1.0); MONOCYTE% 6.8 % (3.0-12.0); NEUTROPHIL# 5.9 X10e3 (1.5-7.1); RED BLOOD COUNT 2.98 X10e (3.90-5.60); WHITE BLOOD COUNT 7.5 X10e3 (4.0-10.5)
[2016-08-06 04:27] LABS: DIFF IND YES; PLATELET COUNT 89 X10e3 (140-420)
[2016-08-06 04:36] LABS: PLATELET ESTIMATE DECREASED (NORMAL); ROULEAUX SLIGHT
[2016-08-06 04:38] LABS: BILIRUBIN,TOTAL 4.7 mg/dL (0.2-2.0); CALCIUM SERUM 7.2 mg/dL (8.4-10.2); MAGNESIUM 1.7 mg/dL (1.6-3.0); PHOSPHOROUS 2.4 mg/dL (2.5-4.6); POTASSIUM 3.7 mmol/L (3.5-5.1); PROTEIN TOTAL SERUM 4.4 g/dL (6.0-8.3)
[2016-08-06 13:05] LABS: ARTERIAL BLD GAS O2 SATURATION 90.1 % (90.0-100.0); ARTERIAL BLOOD GAS CARBOXY HB 1.4 %sat (0.0-9.0); ARTERIAL BLOOD GAS HCO3 33.3 mmol/L; ARTERIAL BLOOD GAS MET HB 0.7 %sat (0.0-2.0); ARTERIAL BLOOD GAS pH 7.306 (7.350-7.450)
[2016-08-06 13:06] LABS: ARTERIAL BLOOD GAS PCO2 66.8 mmHg (35.0-45.0); ARTERIAL BLOOD GAS PO2 73.3 mmHg (80.0-100); ARTERIAL DRAW? YES
[2016-08-06 13:07] LABS: ARTERIAL BLOOD GAS ART SITE RIGHT RADIAL; ARTERIAL BLOOD GAS DELIVERY VENT; ARTERIAL BLOOD GAS VENT MODE CPAP
[2016-08-07 04:12] LABS: BASOPHIL% 0.4 % (0-2.5); EOSINOPHIL# 0.3 X10e3 (0-0.7); EOSINOPHIL% 4.8 % (0.0-7.0); HEMATOCRIT 30.4 % (38.0-50.0); HEMOGLOBIN 9.8 gm/dL (13.0-16.0); LYMPHOCYTE# 0.9 X10e3 (1.0-3.5); LYMPHOCYTE% 12.8 % (17.0-45.0); MEAN CELL VOLUME 99.2 FL (83-96); MEAN CORPUSCULAR HGB CONC 32.2 g/dL (30-36); MEAN PLATELET VOLUME 9.6 FL (6.5-11.5); MONOCYTE# 0.6 X10e3 (0-1.0); MONOCYTE% 8.3 % (3.0-12.0); NEUTROPHIL# 5.3 X10e3 (1.5-7.1); NEUTROPHIL% 73.7 % (40-75); PLATELET COUNT 88 X10e3 (140-420); RED BLOOD COUNT 3.06 X10e (3.90-5.60); RED CELL DISTRIBUTION WIDTH 16.8 % (11.0-15.5); WHITE BLOOD COUNT 7.2 X10e3 (4.0-10.5)
[2016-08-07 04:13] LABS: DIFF IND NO
[2016-08-07 04:40] LABS: BUN/CREATININE RATIO 58.33; CALCIUM SERUM 7.3 mg/dL (8.4-10.2); CREATININE SERUM 0.6 mg/dL (0.6-1.4); GLOM FILT RATE Estimated 110.1 mL/min (>60); MAGNESIUM 1.9 mg/dL (1.6-3.0); PHOSPHOROUS 2.5 mg/dL (2.5-4.6); POTASSIUM 3.9 mmol/L (3.5-5.1)
[2016-08-07 08:36] LABS: ARTERIAL BLD GAS O2 SATURATION 97.6 % (90.0-100.0); ARTERIAL BLOOD GAS CARBOXY HB 1.2 %sat (0.0-9.0); ARTERIAL BLOOD GAS HCO3 30.6 mmol/L; ARTERIAL BLOOD GAS MET HB 0.7 %sat (0.0-2.0); ARTERIAL BLOOD GAS PCO2 42.1 mmHg (35.0-45.0); ARTERIAL BLOOD GAS pH 7.469 (7.350-7.450)
[2016-08-07 08:38] LABS: ARTERIAL BLOOD GAS ART SITE RIGHT RADIAL; ARTERIAL BLOOD GAS FIO2 0.35 %; ARTERIAL DRAW? YES
[2016-08-07 08:39] LABS: ARTERIAL BLOOD GAS DELIVERY VENT; ARTERIAL BLOOD GAS VENT MODE AC
[2016-08-08 03:59] LABS: ARTERIAL BLD GAS O2 SATURATION 97.5 % (90.0-100.0); ARTERIAL BLOOD GAS HCO3 29.7 mmol/L; ARTERIAL BLOOD GAS MET HB 1.1 %sat (0.0-2.0); ARTERIAL BLOOD GAS pH 7.447 (7.350-7.450)
[2016-08-08 04:07] LABS: ARTERIAL BLOOD GAS ALLEN TEST NORMAL; ARTERIAL BLOOD GAS ART SITE RIGHT RADIAL; ARTERIAL BLOOD GAS DELIVERY VENT; ARTERIAL BLOOD GAS VENT MODE AC; ARTERIAL DRAW? YES
[2016-08-08 04:32] LABS: BASOPHIL% 0.3 % (0-2.5); EOSINOPHIL# 0.3 X10e3 (0-0.7); EOSINOPHIL% 2.9 % (0.0-7.0); HEMATOCRIT 30.1 % (38.0-50.0); HEMOGLOBIN 9.5 gm/dL (13.0-16.0); LYMPHOCYTE# 1.1 X10e3 (1.0-3.5); LYMPHOCYTE% 10.3 % (17.0-45.0); MEAN CORPUSCULAR HEMOGLOBIN 31.6 PG (28-34); MEAN CORPUSCULAR HGB CONC 31.6 g/dL (30-36); MEAN PLATELET VOLUME 10.3 FL (6.5-11.5); MONOCYTE% 8.7 % (3.0-12.0); NEUTROPHIL# 8.6 X10e3 (1.5-7.1); NEUTROPHIL% 77.8 % (40-75); PLATELET COUNT 105 X10e3 (140-420); RED BLOOD COUNT 3.01 X10e (3.90-5.60); RED CELL DISTRIBUTION WIDTH 16.9 % (11.0-15.5)
[2016-08-08 04:33] LABS: DIFF IND NO
[2016-08-08 04:57] LABS: BILIRUBIN,TOTAL 4.3 mg/dL (0.2-2.0); BUN/CREATININE RATIO 42.5; CALCIUM SERUM 7.5 mg/dL (8.4-10.2); CREATININE SERUM 0.8 mg/dL (0.6-1.4); GLOM FILT RATE Estimated 97.8 mL/min (>60); MAGNESIUM 1.7 mg/dL (1.6-3.0); PHOSPHOROUS 2.3 mg/dL (2.5-4.6); PROTEIN TOTAL SERUM 5.4 g/dL (6.0-8.3)
[2016-08-08 07:55] LABS: HEPARIN INDUCED PLT AB Negative (Negative); UFH HIGH DOSE 100 3 (()); UFH LOW DOSE 0.1 0 (()); UFH LOW DOSE 0.5 0 (())
[2016-08-09 04:18] LABS: ARTERIAL BLD GAS O2 SATURATION 97.8 % (90.0-100.0); ARTERIAL BLOOD GAS CARBOXY HB 0.9 %sat (0.0-9.0); ARTERIAL BLOOD GAS HCO3 27.3 mmol/L; ARTERIAL BLOOD GAS MET HB 0.7 %sat (0.0-2.0); ARTERIAL BLOOD GAS PCO2 46.3 mmHg (35.0-45.0)
[2016-08-09 04:39] LABS: ARTERIAL BLOOD GAS ALLEN TEST NORMAL; ARTERIAL BLOOD GAS ART SITE RIGHT RADIAL; ARTERIAL BLOOD GAS DELIVERY VENT; ARTERIAL BLOOD GAS VENT MODE AC; ARTERIAL DRAW? YES
[2016-08-09 05:00] LABS: BASOPHIL% 0.2 % (0-2.5); EOSINOPHIL% 0.2 % (0.0-7.0); HEMATOCRIT 30.4 % (38.0-50.0); HEMOGLOBIN 9.5 gm/dL (13.0-16.0); LYMPHOCYTE# 0.7 X10e3 (1.0-3.5); MEAN CELL VOLUME 101.7 FL (83-96); MEAN CORPUSCULAR HEMOGLOBIN 31.9 PG (28-34); MEAN CORPUSCULAR HGB CONC 31.3 g/dL (30-36); MEAN PLATELET VOLUME 10.5 FL (6.5-11.5); MONOCYTE# 0.7 X10e3 (0-1.0); NEUTROPHIL# 13.2 X10e3 (1.5-7.1); NEUTROPHIL% 89.6 % (40-75); PLATELET COUNT 141 X10e3 (140-420); RED BLOOD COUNT 2.99 X10e (3.90-5.60); RED CELL DISTRIBUTION WIDTH 17.5 % (11.0-15.5); WHITE BLOOD COUNT 14.7 X10e3 (4.0-10.5)
[2016-08-09 05:01] LABS: DIFF IND NO
[2016-08-09 06:19] LABS: ALKALINE PHOSPHATASE 174 U/L (32-92); ALT (SGPT) 81 U/L (10-40); AST (SGOT) 118 U/L (10-42); BILIRUBIN,TOTAL 3.9 mg/dL (0.2-2.0); BLOOD UREA NITROGEN 44 mg/dL (9-23); CALCIUM SERUM 7.5 mg/dL (8.4-10.2); CARBON DIOXIDE 28 mmol/L (22-31); CHLORIDE 114 mmol/L (100-111); CREATININE SERUM 1.1 mg/dL (0.6-1.4); GLOM FILT RATE Estimated 73.1 mL/min (>60); GLUCOSE FASTING 163 mg/dL (70-110); MAGNESIUM 1.8 mg/dL (1.6-3.0); PHOSPHOROUS 3.3 mg/dL (2.5-4.6); POTASSIUM 4.6 mmol/L (3.5-5.1); PROTEIN TOTAL SERUM 5.3 g/dL (6.0-8.3); SODIUM 143 mmol/L (135-145); TRIGLYCERIDES 82 mg/dL (10-160)
[2016-08-09 06:20] LABS: ALBUMIN SERUM <1.0 g/dL (3.5-5.0); PREALBUMIN <2.0 mg/dL (17.0-42.0)
== END 2016-08-10 00:09 | DRG 329 ==
LOC: CSUR 07:10 → C4C 11:11 → CPACUOF 11:11 → CSUR 11:33 → CPACUOF 12:45 → C4C 12:45 → CICCU2 08-02 11:56
PROVIDERS: Internal Medicine; Internal Medicine Nephrology; Nurse Practitioner Family; Specialist; Surgery
PROC: 02HV33Z Insertion of Infusion Device into Superior Vena Cava, Percutaneous Approach (ICD-10-PCS; 2016-07-25)
PROC: B548ZZA Ultrasonography of Superior Vena Cava, Guidance (ICD-10-PCS; 2016-07-25)
PROC: 0WUF0JZ Supplement Abdominal Wall with Synthetic Substitute, Open Approach (ICD-10-PCS; principal; 2016-07-25 09:00)
PROC: 5A1955Z Respiratory Ventilation, Greater than 96 Consecutive Hours (ICD-10-PCS; 2016-08-02)
PROC: 0WPF0JZ Removal of Synthetic Substitute from Abdominal Wall, Open Approach (ICD-10-PCS; 2016-08-02)
PROC: 0BH17EZ Insertion of Endotracheal Airway into Trachea, Via Natural or Artificial Opening (ICD-10-PCS; 2016-08-02)
PROC: 0DB80ZZ Excision of Small Intestine, Open Approach (ICD-10-PCS; 2016-08-02 08:00)
PROC: 3E0436Z Introduction of Nutritional Substance into Central Vein, Percutaneous Approach (ICD-10-PCS; 2016-08-06)
PROC: 02HV33Z Insertion of Infusion Device into Superior Vena Cava, Percutaneous Approach (ICD-10-PCS; 2016-08-08)
PROC: B24BZZZ Ultrasonography of Heart with Aorta (ICD-10-PCS; 2016-08-08)
DX: K43.2 Incisional hernia without obstruction or gangrene (principal); J95.821 Acute postprocedural respiratory failure; N17.0 Acute kidney failure with tubular necrosis; J69.0 Pneumonitis due to inhalation of food and vomit; K63.1 Perforation of intestine (nontraumatic); K55.8 Other vascular disorders of intestine; E87.2 Acidosis; N39.0 Urinary tract infection, site not specified; Z51.5 Encounter for palliative care; N99.0 Postprocedural (acute) (chronic) kidney failure; Z66 Do not resuscitate; K72.90 Hepatic failure, unspecified without coma; K21.9 Gastro-esophageal reflux disease without esophagitis; J44.9 Chronic obstructive pulmonary disease, unspecified; Z87.891 Personal history of nicotine dependence; E11.9 Type 2 diabetes mellitus without complications; Z88.0 Allergy status to penicillin; F41.9 Anxiety disorder, unspecified; G89.29 Other chronic pain; I10 Essential (primary) hypertension
CPT/HCPCS: 36600; 71010; 76770; 76937; 77001; 80048; 80053; 80074; 80202; 80307; 81003; 82140; 82550; 82553; 82803; 82947; 83605; 83735; 83880; 84100; 84132; 84134; 84300; 84478; 84484; 85025; 85027; 85610; 85730; 86022; 87040; 87070; 87077; 87086; 87181; 87186; 87205; 87522; 88304; 88307; 89190; 93005; 93308; 94002; 94003; 94640; 94760; 94761; 97116; 97163; 97530; C1751; C9113; J0330; J0610; J1170; J1450; J1650; J1815; J1885; J1940; J2185; J2248; J2250; J2405; J2710; J2765; J2795; J3010; J3243; J3370; J3475; J3480; J7060; Q4130